=== PATIENT | male | born 1970 | race Caucasian/White ===

== ENCOUNTER → 2017-06-30 16:08 | Outpatient (CLI) | payer BC, SELFPAY ==
--- NOTE | 2017-06-30 16:20 | RAD_ITS ---
STUDY: X-RAY - CERVICAL SPINE REASON FOR EXAM: Male, 47 years old. Degenerative disc disease TECHNIQUE: 6 view(s) of the cervical spine were obtained. COMPARISON: None FINDINGS: Disc space narrowing and osteophytes at the C5-6 level. The C6-7 level has been fused. Alignment is normal. Prevertebral soft tissues are unremarkable. Foramina are patent. Dens is normal. No fractures or erosive lesions are seen. RAD/Cerv Spine 4 or 5 Views IMPRESSION: No acute osseous abnormality is evident. Degenerative disc disease at the C5-6 level. Electronically Signed: Js Pierre MD at 0:00 EDT Tel , Service support ,
[2017-06-30 18:01] LABS: Absolute Lymphocyte Count 1.72 X10^3/ul (0.83-4.51); Absolute Neutrophil Count 2.8 X10^3/uL (2.0-7.7); Basophil# 0.01 X10^3/uL; Basophil% 0.2 % (0-1); Eosinophil# 0.12 X10^3/uL; Eosinophils% 2.3 % (0-5); Hematocrit 44.8 % (40-54); Hemoglobin 15.9 g/dl (13.0-16.5); Lymphocyte # 1.72 X10^3/ul (4.0); Lymphocyte % 33.5 % (19-41); Mean Corp Hgb Conc 35.5 g/gl (32-36); Mean Corpuscular Hgb 33.2 pg (27.0-32.0); Mean Corpuscular Volume 93.5 fL (80-94); Mean Platelet Vol. 9.8 fl (6.2-12.0); Monocyte# 0.48 X10^3/uL; Monocyte% 9.4 % (0-10); Neutrophil # 2.79 X10^3/uL (2.7-7.7); Neutrophil % 54.4 % (47-70); Platelet Count 294 K/mm3 (150-450); RBC Distribution Width CV 12.3 % (11.6-14.6); RBC Distribution Width SD 41.5 fl (35.1-43.9); Red Blood Count 4.79 M/mm3 (4.6-6.2); White Blood Count 5.1 K/mm3 (4.4-11.0)
[2017-06-30 18:04] LABS: POSITIVE COUNT NO; POSITIVE DIFFERENTIAL NO; POSITIVE MORPHOLOGY NO
[2017-06-30 18:19] LABS: ALB/GLOB Ratio 1.4 RATIO (0.9-2.4); AST(SGOT) 30 U/L (15-37); Alanine Aminotransfer ALT/SGPT 64 U/L (16-61); Albumin, Serum 4.4 g/dL (3.2-5.0); Alkaline Phosphatase 102 U/L (45-117); Anion Gap 7 (5-15); BUN 14 mg/dL (7-18); BUN/Creat Ratio 12.5 RATIO (10-20); Calcium,Total 8.6 mg/dL (8.5-10.1); Chloride 104 mmol/L (98-107); Creatinine, Serum 1.12 mg/dL (0.70-1.30); EST Glomerular Filtration Rate 75 mL/min (>60); Est Glom Filt Rate - Afr Amer 91 mL/min (>60); Globulin 3.2 g/dL (2.2-4.2); Glucose 86 mg/dL (74-106); Potassium 3.9 mmol/L (3.5-5.1); Protein, Total 7.6 g/dL (6.4-8.2); Sodium Level 142 mmol/L (136-145)
== END ==
PROVIDERS: Family Provider Family Medicine; PCP Family Medicine; Visit Provider Family Medicine
DX: Z00.00 Encounter for general adult medical examination without abnormal findings (principal); M50.30 Other cervical disc degeneration, unspecified cervical region; R10.9 Unspecified abdominal pain
CPT/HCPCS: 36415; 72050; 80053; 85025

== ENCOUNTER 2017-07-06 16:19 | Outpatient (RCR) | payer BC, SELFPAY ==
--- NOTE | 2017-07-27 07:42 | HP.PTEVAL ---
Patient's Visit Information KATIA EASON is a 47 year old M referred to Physical Therapy by Omer Paul with a diagnosis of Cervical DDD. Date of Evaluation: 07/06/17 Physical Therapist: Clarence Watters - Visit Plan Frequency: 1x/Week Duration: 4 Weeks Plan: Pt. had a high copay and reports that he would be unable to make many more PT appointments. Pt. does have home traction unit. edcuated pt. on how to use. I also gave pt. SNAG exercises with towel to increase ROM and proper joint mechanics with cervical ext. Pt.to trial on own, Pt. consents. - Subjective Subjective: Pt. is here today for his initial evaluation with diagnosis of cevical DDD. Pt. reports having these symptoms for many years. He has treated in past with decent success, but has not trialed exercises recently. He reports no mechanism of injury, but just occured gradually. He denies N/T in either UE, no dry plasterer weakness, and no dizziness. Increased pain: sleeping, lifting objects over head, cervical rotation. Decreased pain: nothing really. Pt. had trialed traction in past, has self unit but has not used recently. He had an xray showing DDD and C5/C6. Pt. does have trouble sleeping and his pain does wake him up frequently. Pt. is hopeful to reduce symptoms in order to sleep better and get back to all work and recreational activities without limitations. - Pain cervical spine Pain Intensity (Out of 10): 2 Pain Intensity Range: 0, 6 - Objective POSTURE: PT. has FH and increased thoracic kyphosis, but is able to correct. Increased symptoms with cervical retraction. Pt. has equal shoulder heights. PALPATION: Pt. has increased tenderness at C4-C7 spinous processes. Pt. has no pain at bilat UT or levator scapulea. Pt. has no pain at sub occipitals. NEUROLOGICAL: PT. has normal sensation throughout bilateral UEs to light and sharp touch. Pt. has 2+ biceps and triceps DTR bilaterally. Pt. has no signs of limp tension. ROM: CERVICAL SPINE: flexion- nil loss NE, ext min/mod loss increase NW, SB min loss bilat increase NW, rotation min loss bilat mild increase NW at end range. Pt. has normal bilateral shoulder ROM without increase in symptoms. MMT: Pt. has 5/5 strength throughout bilateral UEs, dry plasterer strength normal R to left with 20# difference from R to L, as expected. R hand dominant. - Special Tests C/S Radiculapathy - Left Spurlings: Negative C/S Radiculapathy - Right Spurlings: Negative C/S Radiculapathy - Left Cervical distraction: Negative C/S Radiculapathy - Right Cervical distraction: Negative C/S Radiculapathy - Left Relief test: Positive C/S Radiculapathy - Right Relief test: Positive Sharp Ortiz: Negative Vertebral Artery Test: Negative Alar Ligament Test: Negative Cervical Sitting: Protrusion - Mechanical Response: No effect Cervical Sitting: Protrusion - Symptoms During Testing: No effect Cervical Sitting: Protrusion - Symptoms After Testing: No effect Cervical Sitting: Retraction - Mechanical Response: No effect Cervical Sitting: Retraction - Symptoms During Testing: Increases Cervical Sitting: Retraction - Symptoms After Testing: No worse Cervical Sitting: Retraction-Extension - Mechanical Response: No effect Cerv Sitting: Retraction-Extension - Symptoms During Testing: Increases Cerv Sitting: Retraction-Extension - Symptoms After Testing: No worse Cervical Sitting: Sidebend Right - Mechanical Response: No effect Cervical Sitting: Sidebend Right - Symptoms During Testing: No effect Cervical Sitting: Sidebend Right - Symptoms After Testing: No effect Cervical Sitting: Sidebend Left - Mechanical Response: No effect Cervical Sitting: Sidebend Left - Symptoms During Testing: No effect Cervical Sitting: Sidebend Left - Symptoms After Testing: No effect Cervical Sitting: Rotation Right - Mechanical Response: No effect Cervical Sitting: Rotation Right - Symptoms During Testing: Increases Cervical Sitting: Rotation Right - Symptoms After Testing: No worse Cervical Sitting: Rotation Left - Mechanical Response: No effect Cervical Sitting: Rotation Left - Symptoms During Testing: Increases Cervical Sitting: Rotation Left - Symptoms After Testing: No worse Cervical Sitting: Flexion - Mechanical Response: No effect Cervical Sitting: Flexion - Symptoms During Testing: No effect Cervical Sitting: Flexion - Symptoms After Testing: No effect - Goals Goal 1:: Pt. to be I with HEP. Goal Time Frame: 4-6 Weeks Goal 2:: Pt. to have increased cervical ROM by 25% in all directions without increase in symptoms. Goal Time Frame: 4-6 Weeks Goal 3:: Pt. to have 0-2/10 pain while sleeping allowing for increased quality of life. Goal Time Frame: 4-6 Weeks Goal 4:: Pt. to complete all work and ADLs with 0-2/10 pain allowing for increased tolerance to all functional mobility. Goal Time Frame: 4-6 Weeks Goal 5:: Pt. to demonstrate improved cervical and thoracic posture throughout therapy demonstrating improved postural endurance and awareness. Goal Time Frame: 4-6 Weeks - Rehabilitation Potential Physical Therapy Diagnosis: Pt. has signs and symptoms consistent with cervical DDD without radiculopathy. Pt. has no radiating symptoms or myotomal weakness. Pt. does have decreased ROM, especially into ext and rotation. He has a traction unit at home that he has not used in a while. He would benefit from PT to increase ROM and decrease symptoms allowing increased tolerance to all functional mobility and sleeping positions. Rehabilitation Potential: Good - Anticipated Interventions Patient/Client Instruction: Educate patient on: Condition, Plan of Care, Risk Factors, Benefits of Fitness Program For the Purpose of:: To foster healthy habits, To improve decision making, To facilitate caregiver knowledge, To improve self management, To prevent re-injury, To improve ability to perform tasks related to life management, To improve tolerance to ADL's Therapeutic Exercise to Include: Strength training, Power training, Postural training, Flexibilty training, Passive ROM, Active ROM, Otf Exercises, Scapular Strength/Stabilization For the Purpose of:: To decrease pain, To decrease swelling/inflammation, To increase ROM, To improve nutrient delivery to tissue, To improve muscle performance and motor function, To improve ability to perform ADL's, To increase tolerance to activity/condition/position Manual Therapy Techniques to Include: Trigger point massage, Mobilization, Passive ROM, Functional dry needling, Soft tissue mobilization For the Purpose of:: To decrease pain, To increase ROM, To improve nutrient delivery to tissue, To increase oxygenation perfusion, To improve muscle performance and motor function, To improve ability to perform ADL's IF ES: Yes Cryotherapy (ice pack, ice massage): Yes Ultrasound (thermal/non thermal): Yes Intermittent cervical traction: Yes For the Purpose of:: To decrease pain, To decrease swelling/inflammation, To increase ROM Thank you for the opportunity to evaluate your patient. For Medicare and Medicare HMO plans, please review the plan of care and approve it. It will need to be FAXED BACK to us at [phone] for Medicare purposes. Please let me know if there are questions or concerns regarding this plan of care. Physician Signature: Date:
--- NOTE | 2017-12-22 12:10 | HP.PTDCNRP_ITS ---
HP - Discharge Summary (1) - Patient Information KATIA EASON was seen in my office for initial evaluation on 07/06/17. The following Plan of Care was established for this patient: Initial Frequency: 1x/Week Initial Duration: 4 Weeks - Anticipated Interventions Patient/Client Instruction: Educate patient on: Condition, Plan of Care, Risk Factors, Benefits of Fitness Program For the Purpose of:: To foster healthy habits, To improve decision making, To facilitate caregiver knowledge, To improve self management, To prevent re- injury, To improve ability to perform tasks related to life management, To improve tolerance to ADL's Therapeutic Exercise to Include: Strength training, Power training, Postural training, Flexibilty training, Passive ROM, Active ROM, Otf Exercises, Scapular Strength/Stabilization For the Purpose of:: To decrease pain, To decrease swelling/inflammation, To increase ROM, To improve nutrient delivery to tissue, To improve muscle p erformance and motor function, To improve ability to perform ADL's, To increase tolerance to activity/condition/position Manual Therapy Techniques to Include: Trigger point massage, Mobilization, Passive ROM, Functional dry needling, Soft tissue mobilization For the Purpose of:: To decrease pain, To increase ROM, To improve nutrient delivery to tissue, To increase oxygenation perfusion, To improve muscle performance and motor function, To improve ability to perform ADL's IF ES: Yes Cryotherapy (ice pack, ice massage): Yes Ultrasound (thermal/non thermal): Yes Intermittent cervical traction: Yes For the Purpose of:: To decrease pain, To decrease swelling/inflammation, To increase ROM This patient was last seen in our office 07/06/17. Pertinent comments regarding their Physical therapy will appear below: Pt. was seen for cervical DDD. Pt. has a history and did not have any radiating symptoms. Pt. had positive results with manual traction. Pt. reported he would be unable to attend future PT visits due to high copay. Pt. does have a home traction unit and was indicated to continue to use this. Pt. consents. Pt. has not been seen in ~6 weeks and will be DC from PT at this point in time. At this point I will be discontinuing this patient from physical therapy. I would be happy to see this patient again in the future if found appropriate by the physician. Thank you! Clarence Watters
== END 2017-07-06 19:00 | disposition home or self-care (01) ==
LOC: PT 16:19
PROVIDERS: Family Provider Family Medicine; PCP Family Medicine; Visit Provider Family Medicine
DX: M50.30 Other cervical disc degeneration, unspecified cervical region (principal)
CPT/HCPCS: 97162

== ENCOUNTER 2017-12-03 05:26 | Day surgery (SDC) | payer BC, SELFPAY ==
[2017-12-03 05:45] VITALS: BP 128/83; PULSE 68; RESP 14; TEMP 36.3; O2SAT 97; BMI 25.9
[2017-12-03] MEDS: Cefazolin 2 GM in 0.9% Normal Saline 100 ML IV (07:02)
--- NOTE | 2017-12-03 07:12 | OP.PCM_ITS ---
Problem List (1) Umbilical hernia without obstruction or gangrene Status: Acute Report of Operation Date of Procedure: 12/03/17 Pre-Operative Diagnosis: k42.9 umbilical hernia without obstruction and without gangrene Post-Operative Diagnosis: same Surgery/Procedure Performed:: Local hernia repair with mesh Type of Anesthesia:: General Anesthesiologist: Prashanth Stauffer Estimated Blood Loss (mL): < 25 cc Description of Procedure: Patient was brought into the operating room. Placed in the supine position. Under excellent general endotracheal intubation the abdomen was sterilely prepped and draped. Local was injected infraumbilically. A curvilinear incision was made. Dissection was carried down to the umbilical defect. This was dissected free from the umbilicus. I then created a preperitoneal plane underneath the fascia. I fashioned a small [employer] ST hernia patch into the wound reference #[id number] lot number [id number]. Circumferentially tacked this to the surrounding fascia with #1 Nurolon's. I injected more local. The umbilicus was tacked down to the fascia with a 2-0 Vicryl. Deep dermals of 3-0 Vicryl in a running 4-0 Monocryl on the skin. Steri-Strips are applied sterile dressings were applied and the patient tolerated the procedure well. - Admit VTE Documentation VTE Present on Admission: No VTE Mechan Device Prophylaxis: SCD's VTE Pharm Prophylaxis ordered?: No Reason prophylaxis not ordered:: Treatment Not Indicated
--- NOTE | 2017-12-03 07:13 | DCINST_ITS ---
Discharge Diet: Light diet - advance as tolerated Discharge Activity: Return to Normal Activity, May Drive - when you are no longer taking narcotic pain medications., May Shower - with the bandage in place 1-2 days after surgery. Lifting Restrictions: 20 pounds for 8 weeks. Additional Activity Instructions:: Climbing stairs is fine, walking is encouraged. Sitting in bed may be uncomfortable. Sitting up using your lateral muscles (sitting up sideways) is usually more comfortable. Do not drive, work heavy equipment of sign legal documents for 24 hours. If your hernia repair was an ingunial repair, you may have scrotal swelling, an ice pack and/or athletic support can provide more comfort. Pain medications may cause nausea, you should typically eat light foods as you take your pain medications. Pain medications may also cause constipation. If you have difficulty with this, discuss with your doctor. Call your doctor if your incision/area has: Continuous Slow Oozing, Sudden Increased Bleeding, Increased Pain/ Swelling, Increased Redness, Foul Smelling Discharge Call your doctor if you observe: Fever of 101 or Higher Suture Line Care: Avoid Pulling/Pushing, Avoid Pinching/Bending Additional Dressing/Incision Instructions:: Leave the operative bandage on for 2 -3 days. When you remove the bandage, leave the steri-strips on place until your follow up appointment or they fall off. Allergies/Adverse Reactions: Allergies ibuprofen Allergy (Severe, Verified 11/26/17 13:37) throat swelling Medications to take at Discharge Oxycodone HCl/Acetaminophen [Percocet 5/325] 1 - 2 tab PO Q4H PRN PRN 5 Days # 30 tab 12/03/17 The following prescriptions were given: Oxycodone HCl/Acetaminophen [Percocet 5/325] 1 - 2 tab PO Q4H PRN PRN 5 Days # 30 tab PRN Reason: Pain Primary Care Physician: Tr Paul MD [Primary Care Provider] - Test Results: Test results from this visit will be discussed in further detail at your follow- up appointment, if applicable. Please Follow Up With: Steve Gamez MD - [phone] When: Plan to have a follow up appointment in 7 days. Call to schedule.
[2017-12-03] MEDS: Bupivacaine Mpf 0.5% 30 ML VIAL (07:42)
[2017-12-03 08:03] VITALS: BP 128/83; BP 131/91; PULSE 69; RESP 16; TEMP 36.6; O2SAT 95
[2017-12-03 08:14] VITALS: BP 124/80; BP 128/83; PULSE 65; RESP 16; O2SAT 95
[2017-12-03 08:30] VITALS: BP 115/88; BP 128/83; PULSE 60; RESP 16; TEMP 36.2; O2SAT 95
[2017-12-03 09:49] VITALS: BP 128/83; BP 130/84; PULSE 51; RESP 16; TEMP 36.2; O2SAT 97
== END 2017-12-03 09:52 | disposition home or self-care (01) ==
LOC: SDC 05:27 → AC 05:28
PROVIDERS: Family Provider Family Medicine; PCP Family Medicine; Visit Provider Surgery
PROC: (CPT 49585; principal; 2017-12-03 07:00)
DX: K42.9 Umbilical hernia without obstruction or gangrene (principal); F17.220 Nicotine dependence, chewing tobacco, uncomplicated; Z87.442 Personal history of urinary calculi
CPT/HCPCS: 49585; J7120; C1781; J2405

== ENCOUNTER → 2020-12-26 | Outpatient (CLI) | payer BC, SELFPAY | END | disposition home or self-care (01) | PROVIDERS: PCP Family Medicine; Visit Provider Physician Assistant | DX: R50.9 Fever, unspecified (principal) | CPT/HCPCS: 87635; U0005; U0003 ==

== ENCOUNTER → 2021-10-15 | Outpatient (CLI) | payer BC, SELFPAY ==
--- NOTE | 2021-10-15 16:39 | RAD_ITS ---
STUDY: XR Wrist Min 3 Views REASON FOR EXAM: Male, 51 years old. PAIN TECHNIQUE: XR Wrist Min 3 Views RIGHT COMPARISON: None FINDINGS: There are no acute findings of the visualized distal radius and ulna. There are no acute findings of the radiocarpal articulation. Normal distal radioulnar articulation. Normal carpal bones. Normal carpal articulations. There are no acute findings of the carpometacarpal articulation of the thumb. Normal second through fifth carpometacarpal articulations. There are no acute findings of the visualized metacarpal bones. The soft tissue structures are unremarkable. RAD/Wrist min 3 Views IMPRESSION: There are no acute findings of the wrist. Electronically Signed: George Nesbitt MD at 20:14 EDT ,
--- NOTE | 2021-10-15 16:40 | RAD_ITS ---
STUDY: XR Hand Min 3 Views REASON FOR EXAM: Male, 51 years old. thumb pain/ snuffbox pain TECHNIQUE: XR Hand Min 3 Views RIGHT COMPARISON: None. FINDINGS: Normal radiocarpal articulation. Normal distal radioulnar joint. Normal visualized carpal bones. Normal carpal articulations Normal carpometacarpal articulation of the thumb. Normal second through fifth carpometacarpal joints. Normal metacarpi. Normal metacarpophalangeal joint of the thumb. Normal interphalangeal joint of the thumb. Normal proximal and distal phalanges of the thumb. Normal metacarpophalangeal joints of the second through fifth fingers. Normal proximal and distal interphalangeal joints of the second through fifth fingers. Normal phalanges of the second through fifth fingers. The soft tissue structures are unremarkable. RAD/Hand Min 3 Views IMPRESSION: There are no acute findings. Electronically Signed: George Nesbitt MD at 20:10 EDT ,
== END | disposition home or self-care (01) ==
LOC: MTRAD 16:34
PROVIDERS: PCP Family Medicine; Referring Provider Nurse Practitioner Family; Visit Provider Nurse Practitioner Family
DX: G56.00 Carpal tunnel syndrome, unspecified upper limb (principal)
CPT/HCPCS: 73110; 73130

== ENCOUNTER → 2022-10-30 | Outpatient (CLI) | payer OTHER, SELFPAY ==
--- NOTE | 2022-10-30 15:58 | RAD_ITS ---
INDICATION: PAIN EXAMINATION/TECHNIQUE: X-RAY - XR Spine Lumbar Comp W/ Bending Min 6 Views COMPARISON: None. FINDINGS: Vertebral bodies are normal height. No definite fracture demonstrated. No subluxation. Mild disc space narrowing with osteophytes most pronounced at L2-3. Mild facet arthropathy at L4-5 and L5-S1. No paravertebral soft tissue mass identified. Additional lateral views obtained with flexion and extension. No subluxation with either flexion or extension. RAD/L/S Spine w Bend Min 6 Vw IMPRESSION: No evidence of fracture or subluxation. Mild degenerative changes. Electronically Signed: Lashonda Donovan MD at 0:02 EDT ,
[2022-10-30 17:35] LABS: Absolute Lymphocyte Count 1.97 X10^3/uL (0.83-4.51); Absolute Neutrophil Count 2.1 X10^3/uL (2.0-7.7); Basophil# 0.05 X10^3/uL; Eosinophil# 0.29 X10^3/uL; Eosinophils% 5.8 % (0-5); Hematocrit 44.8 % (40-54); Hemoglobin 15.8 g/dL (13.0-16.5); Lymphocyte # 1.97 X10^3/ul (0.83-4.51); Lymphocyte % 39.3 % (19-41); Mean Corp Hgb Conc 35.3 g/dL (32-36); Mean Corpuscular Hgb 33.5 pg (27.0-32.0); Mean Corpuscular Volume 95.1 fL (80-94); Mean Platelet Vol. 9.5 fl (6.2-12.0); Monocyte# 0.55 X10^3/uL; NRBC Flagged by Analyzer 0 % (0-5); Neutrophil # 2.14 X10^3/uL (2.7-7.7); Neutrophil % 42.7 % (47-70); Platelet Count 227 K/mm3 (150-450); RBC Distribution Width CV 12.3 % (11.6-14.6); RBC Distribution Width SD 43.1 fl (35.1-43.9); Red Blood Count 4.71 M/mm3 (4.6-6.2)
[2022-10-30 17:50] LABS: Erythrocyte Sedimentation Rate 3 mm/hr (0-20)
[2022-10-30 17:58] LABS: Anion Gap 6 (5-15); BUN 15 mg/dL (7-18); BUN/Creat Ratio 13.4 RATIO (10-20); Calcium,Total 9.1 mg/dL (8.5-10.1); Chloride 107 mmol/L (98-107); Cholesterol 258 mg/dL (200); Creatinine, Serum 1.12 mg/dL (0.70-1.30); EST Glomerular Filtration Rate 73 mL/min (>60); Est Glom Filt Rate - Afr Amer 89 mL/min (>60); Glucose 87 mg/dL (74-106); High Density Lipoprotein 50 mg/dL; PSA,Total - Annual Screen 0.51 ng/mL (0.00-4.00); Potassium 3.8 mmol/L (3.5-5.1); Sodium Level 140 mmol/L (136-145); Thyroid Stim Hormone (TSH) 2.57 uIU/mL (0.358-3.74); Triglycerides 263 mg/dL; Very Low Density Lipoprotein 53 mg/dL (5-40)
[2022-10-30 21:45] LABS: Vitamin B12 539 pg/mL (211-911)
[2022-11-01 11:09] LABS: Lyme Scn Total Ab w/Rflx Negative (Negative)
== END | disposition home or self-care (01) ==
LOC: MTLAB 15:53
PROVIDERS: PCP Family Medicine; Visit Provider Family Medicine
DX: M79.10 Myalgia, unspecified site (principal); Z12.5 Encounter for screening for malignant neoplasm of prostate; Z13.1 Encounter for screening for diabetes mellitus; W57.XXXA Bitten or stung by nonvenomous insect and other nonvenomous arthropods, initial encounter; Z13.220 Encounter for screening for lipoid disorders; M53.3 Sacrococcygeal disorders, not elsewhere classified
CPT/HCPCS: 36415; 72114; 80048; 80061; 82306; 82607; 84153; 84403; 84443; 85025; 85652; 86618; G0103

== ENCOUNTER → 2023-06-30 | Outpatient (CLI) | payer OTHER, SELFPAY ==
--- NOTE | 2023-06-30 09:13 | RAD_ITS ---
STUDY: X-RAY - PELVIS AND LEFT HIP REASON FOR EXAM: Male, 53 years old. Pain. TECHNIQUE: 3 views of the pelvis and left hip. COMPARISON: None. FINDINGS: There is a non-specific bowel gas pattern. Normal visualized soft tissue structures. Normal bilateral iliac wings, sacroiliac joints and visualized sacrum. Normal bilateral superior and inferior pubic rami. Normal pubic symphysis. Normal bilateral ischial tuberosities. There are mild osteoarthritic changes of the femoral heads bilaterally with small marginal osteophyte formation. There is mild osteoarthritic spur formation of the acetabular rims bilaterally. Intact left hip joint. There is no demonstrated acute fracture. RAD/HIP, UNI W/ Pelvis 2-3 Views IMPRESSION: Mild degenerative arthrosis of the hip joints bilaterally. Electronically Signed: Bishop Godwin MD at 8:31 EDT ,
--- NOTE | 2023-06-30 09:13 | RAD_ITS ---
STUDY: X-RAY - LEFT KNEE REASON FOR EXAM: Male, 53 years old. Pain. TECHNIQUE: 4 views of the left knee. COMPARISON: None. FINDINGS: Normal visualized distal femur. Normal visualized proximal tibia and fibula. Normal proximal tibiofibular articulation. There is no demonstrated fracture. Normal medial femorotibial compartment. Normal lateral femorotibial compartment. Normal patellofemoral articulation. There is a moderate volume joint effusion. The soft tissue structures are unremarkable. RAD/Knee 4 or More Views IMPRESSION: Moderate joint effusion. No demonstrated fracture. Electronically Signed: Bishop Godwin MD at 8:24 EDT ,
== END | disposition home or self-care (01) ==
PROVIDERS: PCP Family Medicine; Referring Provider Family Medicine; Visit Provider Family Medicine
DX: M25.562 Pain in left knee (principal); M25.552 Pain in left hip
CPT/HCPCS: 73502; 73564

== ENCOUNTER → 2023-07-20 | Outpatient (CLI) | payer OTHER, SELFPAY ==
--- NOTE | 2023-07-20 08:45 | MRI_ITS ---
EXAM: MR LUMBAR SPINE WITHOUT INTRAVENOUS CONTRAST CLINICAL INDICATION: LUMBAGO W/ SCIATICA TECHNIQUE: Multiplanar and multisequence MR images of the lumbar spine without intravenous contrast. COMPARISON: No relevant prior studies available. FINDINGS: VERTEBRAE: Alignment of the lumbar vertebral bodies. Normal vertebral body height. No bone marrow edema. SPINAL CORD: Normal. Normal position and signal intensity of the conus medullaris. SACRUM/COCCYX: 11 mm sacral cysts noted at the S2 level. SOFT TISSUES: Normal. DISCS/SPINAL CANAL/NEURAL FORAMINA: L1-L2: Mild disc space narrowing and desiccation. Mild broad-based disc osteophyte complex causes mild compression of the thecal sac. Intact neural foramina. L2-L3: Mild to moderate disc space narrowing and desiccation. Circumferential disc osteophyte complex causes mild spinal stenosis and moderate left and mild right neural foraminal narrowing. L3-L4: Mild disc space narrowing and desiccation. Broad-based disc protrusion, mild ligamentous hypertrophy and facet arthropathy results in mild to moderate spinal stenosis and mild right and moderate left neural foraminal narrowing. L4-L5: Mild disc space narrowing noted posteriorly without desiccation. Mild disc bulging, ligamentous hypertrophy and facet arthropathy result in mild compression of the thecal sac and moderate bilateral neural foraminal narrowing. L5-S1: Normal. Normal disc height and morphology. Normal spinal canal and lateral recesses. Normal neuroforamina. MRI/Spine Lumbar (Routine) IMPRESSION: 1. Mild to moderate L3-4 and mild L2-3 and L4-5 spinal stenosis. 2. Multilevel neural foraminal narrowing as described. Electronically Signed: Alejandro Winters MD at 16:57 EDT ,
== END | disposition home or self-care (01) ==
PROVIDERS: PCP Family Medicine; Referring Provider Family Medicine; Visit Provider Family Medicine
DX: M54.42 Lumbago with sciatica, left side (principal)
CPT/HCPCS: 72148

== ENCOUNTER → 2023-10-13 | Outpatient (CLI) | payer OTHER, SELFPAY ==
--- NOTE | 2023-10-13 10:24 | MRI_ITS ---
STUDY: MRI LEFT KNEE REASON FOR EXAM: Male, 53 years old. Acute pain in left knee. TECHNIQUE: Standardized fat and water weighted pulse sequences were obtained in all 3 orthogonal planes. COMPARISON: Left knee radiographs dated 06/30/2023. FINDINGS: There is a displaced meniscal flap tear of the free edge of the posterior horn of the medial meniscus, flipped into the posterior intercondylar notch region (sagittal T2 series 4 images 7-11; axial T2 series 2 images 16-17). Normal hyaline cartilage of the medial femorotibial compartment. Normal medial femoral condyle and tibial plateau. There is a mild grade I MCL sprain with periligamentous edema (coronal T2 series 6 images 17-19). Normal distal semimembranosus, gracilis and semitendinosus tendons. Normal lateral meniscus. Normal hyaline cartilage of the lateral femorotibial compartment. Normal lateral femoral condyle and tibial plateau. Normal proximal tibiofibular articulation. Normal lateral collateral (fibular) ligament. Normal popliteus tendon. Normal biceps femoris tendon. There is an interstitial sprain of the ACL without focal tear or laxity (sagittal T2 series 4 images 13-14). There is a tear through the midsubstance of the PCL (sagittal T2 series 4 images 11-12). There is slight lateral patellar subluxation. Normal hyaline cartilage of the patellofemoral compartment. Normal medial and lateral patellar retinaculum. Normal quadriceps tendon. Normal patellar tendon. Normal Hoffa''s fat pad. There is a small joint effusion. There is a small popliteal cyst. There is mild subcutaneous soft tissue edema along the anteromedial aspect of the knee. The otherwise visualized osseous structures are unremarkable. MRI/Lower Ext Joint Only (Routine) IMPRESSION: Displaced meniscal flap tear of the free edge of the posterior horn of the medial meniscus, flipped into the posterior intercondylar notch region. Mild grade I MCL sprain. Interstitial sprain of the ACL without focal tear or laxity. Tear through the midsubstance of the PCL. Slight lateral patellar subluxation. Small joint effusion and small popliteal cyst. Mild subcutaneous soft tissue edema along the anteromedial aspect of the knee. Electronically Signed: Bishop Godwin MD at 11:37 EDT ,
== END | disposition home or self-care (01) ==
LOC: MRI 10:08
PROVIDERS: PCP Family Medicine; Referring Provider Family Medicine; Visit Provider Family Medicine
DX: M25.562 Pain in left knee (principal)
CPT/HCPCS: 73721

== ENCOUNTER 2023-12-02 05:39 | Day surgery (SDC) | payer OTHER, SELFPAY ==
[2023-12-02] VITALS (9 sets, daily range): BP systolic 138–155; BP diastolic 89–101; PULSE 63–82; RESP 16; TEMP 36.3–36.7; O2SAT 93–97; BMI 28.0
[2023-12-02] MEDS: Lactated Ringers 1,000 ML 15 ML IV (06:25)
--- NOTE | 2023-12-02 06:41 | PRE.ANES_ITS ---
ASA Classification* ASA Classification ASA Classification: 2 Assessment & Plan Anesthesia* Anesthesia Assessment Anesthesia Assessment: Discussed sedation and/or anesthesia options, risks, benefits, and alternatives with patient/parents/legal guardian/POA. Questions invited. The patient/parents/legal guardian/POA seems to understand and agrees to proceed with anesthesia plan. Reviewed the physical assessment, medical history, allergy history and patient home medications list prior to surgery/procedure/anesthetic and documented any changes. Performed airway and anesthesia risk assessments. Anesthesia Type Anesthesia Type: General Anesthesia Focused Assessment* Temperature: 98.1 F Pulse Rate: 63 Blood Pressure: 155/98 Respiratory Rate: 16 Pulse Ox: 96 Airway Assessment Mouth opens: >3 cm Mallampati Score: II Focused Labs Anesthesia Preop lab: CBC WBC 5.0 K/mm3 (4.4-11.0) 10/30/22 15:54 RBC 4.71 M/mm3 (4.6-6.2) 10/30/22 15:54 Hgb 15.8 g/dL (13.0-16.5) 10/30/22 15:54 Hct 44.8 % (40-54) 10/30/22 15:54 Plt Count 227 K/mm3 (150-450) 10/30/22 15:54 CHEMISTRY Potassium 3.8 mmol/L (3.5-5.1) 10/30/22 15:54 Sodium 140 mmol/L (136-145) 10/30/22 15:54 BUN 15 mg/dL (7-18) 10/30/22 15:54 Creatinine 1.12 mg/dL (0.70-1.30) 10/30/22 15:54 Glucose 87 mg/dL (74-106) 10/30/22 15:54 TSH 2.57 uIU/mL (0.358-3.74) 10/30/22 15:54 COAG Pre-Assessment Diagnosis/Proposed Procedure Planned Operative Procedure(s): (L) Left knee arthroscopy, medial meniscus partial meniscectomy, possible repair Anesthesia History 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 When Was Last Pacemaker Check QUESTION #4 FULL TEXT: You/Your Family Experience fever (hyperthermia) with Anesthesia Last Oral Intake Last Oral intake: Last Oral Intake NPO since 00:00 12/02/23 06:20 Meds taken in AM with sips of No 12/02/23 06:20 water? 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 Female No 11/19/23 08:33 HX of Motion Sickness No 11/19/23 08:33 HX of N/V After Surgery No 11/19/23 08:33 Non-Smoker No 11/19/23 08:33 Duration of Surgery greater Yes 11/19/23 08:33 than 60 minutes Number of Risk Factors 1 11/19/23 08:33 PONV Score Low Risk 11/19/23 08:33 Height & Weight Height & Weight: Anesthesia: Height & Weight Height 6 ft 2 in 12/02/23 06:20 Weight: 99 kg 12/02/23 06:20 Body Mass Index (BMI) 28.0 12/02/23 06:20 Respiratory Assessment Respiratory Assessment - cracking unit operator: Respiratory Tract Infection Hx - cracking unit operator Hx Respiratory Tract Infection No 11/19/23 08:33 STOP Sleep Apnea STOP Sleep Apnea - cracking unit operator: STOP Sleep Apnea - cracking unit operator Hx Hypertension No 11/19/23 08:33 Hx Sleep Apnea No 11/19/23 08:33 CPAP BIPAP Do you snore loudly (louder Yes 11/19/23 08:33 than talking or can be heard Do you often feel tired/ No 11/19/23 08:33 fatigued/ sleepy during daytime? Has anyone observed you stop Yes 11/19/23 08:33 breathing during sleep? STOP Results Positive 11/19/23 08:33 QUESTION #5 FULL TEXT : Do you snore loudly (louder than talking or can be heard through closed doors)? 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 Specify any problems Hx of Preganancy in last 3 N/A 11/19/23 08:33 Months Nurse Filling Out Transfusion VCHRISTIN 11/19/23 08:33 & Questions: Date: 11/19/23 11/19/23 08:33 Time: 08:35 11/19/23 08:33 Patient unable to answer at this time (ie. 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: /Reproductive Hx- cracking unit operator Hx Now Gestational Age (in weeks): EDC: Hx Hx Para Hx Section SAB Active Medications Active Medications: Current Medications Generic Name Dose Route Start Last Admin Trade Name Freq PRN Reason Stop Dose Admin Cefazolin Sodium 2 gm/ Sodium 110 mls @ 150 mls/hr 12/02/23 07:30 Chloride IV 12/02/23 08:13 PREOP ONE Lactated Ringer's 1,000 mls @ 15 mls/hr 12/02/23 06:30 12/02/23 06:25 IV 15 mls/hr .Q48H RUKHSANA Administration PFSH Medical History Wears glasses Alcohol use History of steroid therapy Arthritis Back pain Injury of head and neck History of diverticulitis Chewing tobacco dependence History of edema 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 Tear of medial meniscus of left knee Encounter for screening for COVID-19 Chronic back pain Renal calculi Diverticulosis Home Medications ?Medication ?Instructions ?Recorded ?Last Taken ?Type B-complex with vitamin C 1 tab PO DAILY 10/23/23 Unknown History cholecalciferol (vitamin D3) 62.5 62.5 mcg PO DAILY 10/23/23 Unknown History mcg (2,500 unit) capsule multivitamin 1 tab PO DAILY 10/23/23 Unknown History turmeric 400 mg capsule 400 mg PO DAILY 11/19/23 Unknown History Allergy/AdvReac Type Severity Reaction Status Date / Time ibuprofen Allergy Severe throat Verified 12/02/23 06:06 swelling NSAIDS (Non-Steroidal Allergy Swelling Verified 12/02/23 06:06 Anti-Inflamma Family History Mother Cancer brain cancer Brother Cancer brain Surgical History History of umbilical hernia repair (~11/2017) History of arthroscopic knee surgery History of wisdom tooth extraction history of lymph node removal History of neck surgery Social History Smoking Status: Current every day smoker tobacco type: smokeless tobacco Review of Systems (Anesthesia) ROS Narrative System reviewed and no additional complaints, except as documented.
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
[2023-12-02] MEDS: Cefazolin 2 GM in 0.9% Normal Saline (100mL Bag) 100 ML IV (07:37)
[2023-12-02] MEDS: Epinephrine (1 mg/ml) 1 MG/ML VIAL (08:00)
[2023-12-02] MEDS: Bupivacaine 0.25% 30 ML Vial (08:46)
--- NOTE | 2023-12-02 08:55 | PCM.OPRPT ---
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 Placed supine on the table. General anesthesia induced. 2 g IV Ancef ministered prior to the start of procedure. All bony prominences padded. Left lower extremity tourniquet applied to the thigh. SCD on the nonoperative leg. Stress positioner to the patient's left side. Lower extremity prepped and draped in the usual sterile fashion with chlorhexidine-based prep solution allowing over 3 minutes drying time prior to draping. Preoperative timeout performed to confirm the site patient and the surgery. EUA revealed slight posterior drawer grade 1 possibly grade 2 laxity. Began by elevating the limb inflated the tourniquet to 250 mmHg. Use standard anterolateral anteromedial arthroscopy portals. Did a full diagnostic arthroscopy. Grade 1 changes at the undersurface of the patella grade 1-2 changes of the trochlea. Debrided slightly the patellofemoral compartment any sort of frayed cartilage to the same in the medial and lateral compartments. ACL appeared frayed but intact. Lateral compartment grade 1 changes both sides slight fraying of the meniscus gently debrided scar tissue and did lysis of adhesions as well from the prepatellar area on both sides near the portals. I turned attention to medial aspect of the knee. I used the probe to and flipped the meniscus tear that was below the joint surface. I gently debrided this using shaving instrument. There was an aspect of a radial tear at the mid aspect of the medial meniscus as well as a component of a vertically oriented tear at the red red zone peripheral aspect of the anterior one third of the medial meniscus, roots intact. Knee was quite tight mild arthritis grade 1-3 changes on the medial compartment primarily of the femoral side. Due to the radial nature as well as red red zone tear medial meniscus elected to perform repair. I trephinated the MCL as well as using a piecrust technique at the proximal origin of the MCL to help with the opening of the compartment, but the knee was quite tight this was still difficult to fully open. I used the meniscus rasp on the peripheral aspect of the tear. Made 2 accessory AL portals. I used 2 vertically oriented vertical mattress sutures at the peripheral aspect of the tear. 1 of these was a Arthrex fiber stitch all inside and then the other was 2?0 braided suture inside out using the zone specific cannulas. Tied this using direct visualization. And then also performed 2 [id number] stitches at the radial aspect of the tear cut the suture short these were Arthrex all inside fiber stitch sutures. Tear was solidly fixed with no areas of flipped fragment below the joint surface. Final pictures taken and saved throughout the case on the system. I did the Gillquist view no obvious root tear medial meniscus. Tourniquet let down hemostasis achieved thoroughly irrigation. Portal sites closed with 3-0 Monocryl sutures. Skin cleaned with wet dry dressing 10 cc of 0.25%bupivacaine instilled in around the portal sites. Adaptic 4 x 4 gauze ABD and Johnathon wrap with a hinged knee brace locked in full extension was then placed. Patient woken up from general acetic transfer off the operating table and taken postanesthetic care unit in stable vision. Sponge needle instrument counts were correct. CPT 37799, 85217? Complications none Admit VTE Documentation VTE Present on Admission: No VTE Mechan Device Prophylaxis: SCD's VTE Pharm Prophylaxis ordered?: Yes Procedures Musculoskeletal [id number]-29xxx: Other Procedure See Report
--- NOTE | 2023-12-02 09:18 | EX.PCM.DISCH ---
Discharge Instructions Diet Discharge Diet: No restrictions Activity Discharge Activity: Use Crutches Weight Bearing Status: Weight bearing as tolerated Lifting Restrictions: with brace with leg straight Keep extremity elevated above heart level: Operative Extremity Dressing / Incision Call your doctor if your incision/area has: Continuous Slow Oozing, Sudden Increased Bleeding, Increased Pain/ Swelling, Increased Redness, Foul Smelling Discharge and Swelling at the incision site Call your doctor if you observe: Fever of 101 or Higher, Coldness, Increased Pain and Numbness or Tingling Remove Dressing in: leave in place till F/U Cleanse incision/area with: Do not get Incision Wet Follow Up Care Please Follow Up With: Tomas Buenrostro MD When: 2 days Test Results: Test results from this visit will be discussed in further detail at your follow-up appointment, if applicable. Discharge Plan Admission Attending Provider: Tomas Buenrostro Primary Care Provider: Omer Paul Instructions Print Language: Citizen Of [place] Discharge Orders/Prescriptions Prescriptions: New Xarelto 10 mg tablet 10 mg PO DAILY MDD 1 14 Days Qty: 14 0RF oxycodone-acetaminophen [Endocet] 5-325 mg tablet 1 tab PO Q4H MDD 6 PRN (Reason: pain) 3 Days Qty: 14 0RF No Action cholecalciferol (vitamin D3) 62.5 mcg (2,500 unit) capsule 62.5 mcg PO DAILY multivitamin Tablet 1 tab PO DAILY B-complex with vitamin C Tablet 1 tab PO DAILY turmeric 400 mg capsule 400 mg PO DAILY Referrals / Follow Up: Omer Paul MD [Primary Care Provider] - Disposition Disposition (needs filled in before D/C Order can be placed): Home, Self Care
[2023-12-02] MEDS: HYDROcodone Bitartrate/Apap 5/325 Tablet PO (09:33)
--- NOTE | 2023-12-02 13:43 | PCM.POST.ANE ---
Anesthesia: Postop Eval I Current Vital Signs Temperature: 97.4 F Pulse Rate: 82 Blood Pressure: 138/99 Respiratory Rate: 16 Pulse Ox: 93 Assessment Airway patent: Yes Spontaneous unlabored respirations: Yes nausea: No Vomiting: No Anesthesia Complication: No Fluid Hydration Crystalloid volume administer (ml): 1,000 Total IV fluid infused: 1,000 Progress Note Anesthesia document: Postop Eval 1 completed: Yes
== END 2023-12-02 10:10 | disposition home or self-care (01) ==
LOC: SDC 05:45 → AC 05:46
PROVIDERS: PCP Family Medicine; Referring Provider Orthopaedic Surgery Sports Medicine; Visit Provider Orthopaedic Surgery Sports Medicine
PROC: (CPT 29870; principal; 2023-12-02 07:10)
DX: S83.242A Other tear of medial meniscus, current injury, left knee, initial encounter (principal); S83.522A Sprain of posterior cruciate ligament of left knee, initial encounter; X58.XXXA Exposure to other specified factors, initial encounter; M17.12 Unilateral primary osteoarthritis, left knee; F17.220 Nicotine dependence, chewing tobacco, uncomplicated
CPT/HCPCS: 29882; 29884; 01400; J7120; J2405

== ENCOUNTER 2024-03-14 09:00 | Outpatient (RCR) | payer OTHER, SELFPAY ==
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
--- NOTE | 2024-01-21 10:33 | HP.PTREVAL ---
Re-Evaluation Intro: Dr. Tomas Buenrostro MD, It has been my pleasure to treat KATIA EASON over the last 13 visits for L medial meniscal repair 12/02/23. Please see the progress note below for an update on the physical therapy plan of care! Subjective Subjective: I am still having a lot of trouble sleeping at this time. I go from the bed to the chair Objective Objective/Function: L knee pain ranges from 4-6/10 L knee ROM: 0-10-105 degrees L knee MMT: flex= 18, ext= 19 #F Pt is still lacking functional strength and ROM Plan Plan Plan: 01/21/24- Continue to focus on L knee strengthening and ROM Balance/Gait/Functional tests Balance/Special Test Scores Lower Extremity Functional Score: 20 Goals Goals Goal 1:: Pt will be I with HEP. Goal Time Frame: 4-6 Weeks Goal Progress: Progressing Goal 2:: Pt will be partial WBing with one crutch to aid with ambulation. Goal Time Frame: 4-6 Weeks Goal Progress: Goal Met Goal 3:: Pt will increase L knee strength to within 90% of R knee to aid with completing iADLs and ADLs. Goal Time Frame: 4-6 Weeks Goal Progress: Progressing Goal 4:: Pt will increase L knee ROM to within 90% of R knee to aid with negotiating stairs. Goal Time Frame: 4-6 Weeks Goal Progress: Progressing Goal 5:: Pt will decrease pain by 50% to aid with sleep. Goal Time Frame: 4-6 Weeks Goal Progress: Progressing Anticipated Interventions Anticipated Interventions Patient/Client Instruction: Educate patient on: Plan of Care Therapeutic Exercise to Include: Strength training, Balance training, Body mechanics, Flexibilty training and Dynamic Lumbar Stabilization For the Purpose of:: To decrease pain, To decrease swelling/inflammation, To increase ROM, To improve muscle performance and motor function, To improve ability to perform ADL's and To improve ability of physical actions for home/community/work/leisure Re-Evaluation Ending Re-evaluation ending: Please do not hesitate to contact me at [phone] by phone or if you have questions or concerns regarding this new plan of care! Sincerely, George Smith, PT, ATC
--- NOTE | 2024-03-14 09:22 | HP.PTDCSUM ---
Discharge Summary D/C summary: It has been my pleasure to treat KATIA EASON referred by Dr. Tomas Buenrostro MD, with the diagnosis of L medial meniscal repair 12/02/23 for a total of 30 visit(s). Discharge Date: Please see the following information for a summary of their discharge status. Subjective Subjective: I am ready to be done Pain L knee: Pain Intensity (Out of 10): 1 Overall Improvement % Improvement: 60 Objective Objective/Function: L knee pain is 1-2/10 L knee MMT: flex= 29, ext= 42 #F L knee ROM: 0-4-120 degrees Pt is I with HEP Goals Goal 1:: Pt will be I with HEP. Goal Progress: Goal Met Goal 2:: Pt will be partial WBing with one crutch to aid with ambulation. Goal Progress: Goal Met Goal 3:: Pt will increase L knee strength to within 90% of R knee to aid with completing iADLs and ADLs. Goal Progress: Progressing Goal 4:: Pt will increase L knee ROM to within 90% of R knee to aid with negotiating stairs. Goal Progress: Goal Met Goal 5:: Pt will decrease pain by 50% to aid with sleep. Goal Progress: Goal Met Goal 6:: Pt will negotiate 10 stairs without limitation to aid with return to work Goal Progress: New goal Plan Plan: Discharge to I gym routine D/C Information d/c sentence: If there are questions or concerns regarding this patient's physical therapy, please feel free to call me at [phone]. Thank you for the referral of this patient. Sincerely, George Smith, PT, ATC Balance/Gait/Functional tests Balance/Special Test Scores Lower Extremity Functional Score: 39 Improvement % Improvement: 60
== END 2024-03-14 19:00 | disposition home or self-care (01) ==
LOC: PT 09:00
PROVIDERS: PCP Family Medicine; Referring Provider Orthopaedic Surgery Sports Medicine; Visit Provider Orthopaedic Surgery Sports Medicine
DX: S83.242D Other tear of medial meniscus, current injury, left knee, subsequent encounter (principal)
CPT/HCPCS: 97110; 97161; 97530

== ENCOUNTER → 2024-09-26 | Outpatient (CLI) | payer OTHER, SELFPAY ==
[2024-09-26 12:36] LABS: Hematocrit 43.2 % (40-54); Hemoglobin 15.2 g/dL (13.0-16.5); Immature Granulocytes Count 0.020 X10^3/uL (0.0-0.0); Mean Corp Hgb Conc 35.2 g/dL (32-36); Mean Corpuscular Volume 96.2 fL (80-94); Mean Platelet Vol. 10.1 fl (6.2-12.0); NRBC Flagged by Analyzer 0 % (0-5); Platelet Count 227 K/mm3 (150-450); RBC Distribution Width CV 12.3 % (11.6-14.6); RBC Distribution Width SD 43.6 fl (35.1-43.9); Red Blood Count 4.49 M/mm3 (4.6-6.2); White Blood Count 6.3 K/mm3 (4.4-11.0)
[2024-09-26 13:16] LABS: Anion Gap 12 (5-15); BUN 16 mg/dL (4-19); BUN/Creat Ratio 14.8 RATIO (10-20); Calcium,Total 9.4 mg/dL (7.6-11.0); Carbon Dioxide 25.1 mmol/L (21.0-32.0); Chloride 103 mmol/L (98-108); Cholesterol 232 mg/dL (<=200); Glucose 93 mg/dL (70-99); Low Density Lipoprotein Calc. 144 mg/dL; Potassium 4.3 mmol/L (3.3-5.1); Triglycerides 111 mg/dL; Very Low Density Lipoprotein 22 mg/dL (5-40); cholesterol:hdl ratio screen 3.53
[2024-09-26 13:17] LABS: PSA,Total - Annual Screen 0.67 ng/mL (0.02-4.00); Vitamin B12 675 pg/mL (180-914); Vitamin D,25 Hydroxy 48.1 ng/mL (30-100)
== END | disposition home or self-care (01) ==
LOC: MFPLAB 08:36
PROVIDERS: PCP Family Medicine; Referring Provider Family Medicine; Visit Provider Family Medicine
DX: M79.10 Myalgia, unspecified site (principal); Z13.220 Encounter for screening for lipoid disorders; Z12.5 Encounter for screening for malignant neoplasm of prostate; Z13.1 Encounter for screening for diabetes mellitus
CPT/HCPCS: 36415; 80048; 80061; 82306; 82607; 84153; 84403; 84443; 85025; 85652; G0103

== ENCOUNTER 2024-10-14 07:10 | Day surgery (SDC) | payer OTHER, SELFPAY ==
[2024-10-14] VITALS (9 sets, daily range): BP systolic 93–131; BP diastolic 56–96; PULSE 50–86; RESP 16–18; TEMP 36.2–36.6; O2SAT 94–98; BMI 28.3
--- OUTSIDE RECORDS SUMMARY | 2024-10-14 07:21 | XMS RPT_ITS | CCD ---
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 Tello Primary Care Provider Beverly OSMAN, Dr. Tello Attending Provider Beverly OSMAN, Dr. Tello Referring Provider [phone] Tomas Buenrostro Attending Unavailable Tomas Buenrostro Consulting Unavailable Tomas Buenrostro Referring Unavailable Ranney, Christopher Primary Care Unavailable Tomas Buenrostro Attending Unavailable Beverly, Christopher Primary Care Unavailable Beverly, Christyan Referring Unavailable Tomas Buenrostro Attending Unavailable Beverly, Christopher Primary Care Unavailable Beverly, Christyan Referring Unavailable Tomas Buenrostro Referring Unavailable Tomas Buenrostro Attending Unavailable Jonhney, Christopher Primary Care Unavailable Ranney, Christopher Referring Unavailable Ranney, Christopher Primary Care Unavailable Armando Paul Attending Unavailable Tomas Buenrostro Attending Unavailable Tomas Buenrostro Referring Unavailable Ranney, Christopher Primary Care Unavailable Ranney, Christopher Primary Care Unavailable Ranney, Christopher Referring Unavailable Yann Taylor Attending Unavailable Tomas Buenrostro Attending Unavailable Ranney, Christopher Primary Care Unavailable Armando Paul Referring Unavailable Tomas Buenrostro Referring Unavailable Tomas Buenrostro Attending Unavailable Ranney, Christopher Primary Care Unavailable Ranney, Christopher Referring Unavailable Tomas Buenrostro Attending Unavailable Ranney, Christopher Primary Care Unavailable Beverly, Christopher Referring Unavailable Tomas Buenrostro Attending Unavailable Jonhney, Christopher Primary Care Unavailable Tomas Buenrostro Attending Unavailable Ranney, Christopher Primary Care Unavailable Ranney, Christopher Referring Unavailable Armando Paul Referring Unavailable Tomas Buenrostro Attending Unavailable Armando Paul Primary Care Unavailable Allergies Allergy Classification Reported Allergen(s) Allergy Type Date of Onset Reaction(s) Facility (8 sources) Ibuprofen; Translations: [IBUPROFEN] Drug Allergy 8 Anaphylaxis [facility] (3 sources) NSAIDs; Translations: [NSAIDS (NON-STEROIDAL ANTI-INFLAMMATORY DRUG)] Propensity to adverse reactions 5 Anaphylaxis [facility] Work Phone: (1 source) Nonsteroidal Anti-inflammatory Compounds Allergy to substance 5 Swelling [facility] Comment on above: tongue and throat (1 source) Ibuprofen Drug Allergy 5 [facility] (1 source) NSAIDs Drug allergy (disorder) 5 [facility] Medications Current Medications Medication Drug Class(es) Dates Sig (Normalized) Sig (Original) azithromycin 250 mg oral tablet (1 source) Macrolide Antimicrobial Start: 06-18-2024 End: 06-23-2024 azithromycin (Zithromax Z-Chacho) 250 mg tablet Indications: Acute bronchitis, unspecified organism Take 2 tablets (500 mg) on Day 1, followed by 1 tablet (250 mg) once daily on Days 2 through 5. 6 tablet 06/18/2024 06/23/2024 Active B-Complex With Vitamin C tablet (1 source) Start: 10-23-2023 B-Complex With Vitamin C tablet Active 1 {tbl} PO DAILY October 23, 2023 12:00am Cholecalciferol (1 source) Vitamin D Start: 10-23-2023 take 1 capsule by mouth once daily Cholecalciferol (Vitamin D3) 62.5 mcg (2,500 unit) capsule Active 62.5 ug PO DAILY October 23, 2023 12:00am Multivitamin tablet (1 source) Start: 10-23-2023 Multivitamin tablet Active 1 {tbl} PO DAILY October 23, 2023 12:00am predniSONE 10 mg oral tablet (1 source) Start: 06-18-2024 End: 06-23-2024 take 3 tablets by mouth once daily predniSONE (Deltasone) 10 mg tablet Indications: Acute bronchitis, unspecified organism Take 3 tablets (30 mg) by mouth once daily for 5 days. 15 tablet 06/18/2024 06/23/2024 Active Turmeric extract (1 source) Start: 11-19-2023 take 1 capsule by mouth once daily Turmeric 400 mg capsule Active 400 mg PO DAILY November 19, 2023 12:00am Completed/Discontinued Medications Medication Drug Class(es) Dates Sig (Normalized) Sig (Original) acetaminophen 325 mg / oxyCODONE hydrochloride 5 mg oral tablet (6 sources) Opioid Agonist Start: 12-02-2023 End: 12-15-2023 Oxycodone-Acetamino phen (Endocet) 5-325 mg tablet Discontinued 1 {tbl} PO Q4H as needed for pain 14 3 0 December 02, 2023 December 15, 2023 10:04am Tear of medial meniscus of left knee Other tear of medial meniscus, current injury, left knee, initial encounter Start: 12-03-2017 End: 12-10-2017 Oxycodone-Acetaminophen 1 TA BLET tablet Discontinued 1 - 2 {tbl} PO EVERY 4 HOURS NEEDED as needed for Pain 30 5 December 03, 2017 12:00am December 10, 2017 2:27pm Umbilical hernia without obstruction or gangrene Start: 12-03-2017 End: 12-10-2017 take 1 tablet by mouth every four hours as needed Oxycodone-Acetaminophen Discontinued 1 - 2 TABLET PO EVERY 4 HOURS NEEDED 30 5 December 03, 2017 12:00am December 10, 2017 2:27pm benzonatate 200 mg oral capsule (5 sources) Non-narcotic Antitussive Start: 12-26-2020 End: 10-23-2023 take 1 capsule by mouth three times daily as needed for cough Benzonatate 200 mg capsule Discontinued 200 mg PO THREE TIMES A DAY as needed for cough 30 0 December 26, 2020 12:00am October 23, 2023 8:15am rivaroxaban 10 mg oral tablet (1 source) Factor Xa Inhibitor Start: 12-02-2023 End: 09-20-2024 take 1 tablet by mouth once daily Rivaroxaban (Xarelto) 10 mg tablet Discontinued 10 mg PO DAILY 14 14 0 December 02, 2023 12:00am September 20, 2024 1:26pm Tear of medial meniscus of left knee Other tear of medial meniscus, current injury, left knee, initial encounter vte prophylaxis Problems Active Problems Problem Classification Problem Date Documented Da te Episodic/Chronic Abdominal hernia (5 sources) Umbilical hernia; Translations: [Umbilical hernia without obstruction or gangrene] 12-03-2017 Episodic Acute bronchitis (3 sources) Acute bronchitis; Translations: [Acute bronchitis, unspecified] Onset: 06-18-2024 06-18-2024 Episodic Immunizations and screening for infectious disease (6 sources) Patient encounter status; Translations: [Encounter for screening for COVID-19] 12-26-2020 Episodic Other connective tissue disease (1 source) Myalgia, unspecified site; Translations: [Myalgia, unspecified site] Onset: 09-29-2024 Episodic Other lower respiratory disease (5 sources) Cough; Translations: [Cough] 12-26-2020 Episodic Other upper respiratory infections (3 sources) Viral upper respiratory tract infection; Translations: [Acute upper respiratory infection, unspecified] Onset: 07-14-2024 07-14-2024 Episodic Past or Other Problems Problem Classification Problem Date Documented Da te Episodic/Chronic Joint disorders and dislocations; trauma-related (2 sources) Other tear of medial meniscus, current injury, left knee, initial encounter; Translations: [Tear of medial meniscus of left knee] Onset: 12-30-2023 10-23-2023 Episodic Sprains and strains (2 sources) 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; Translations: [Sprain of posterior cruciate ligament of left knee, initial encounter] Onset: 07-06-2024 10-23-2023 Episodic Unclassified (5 sources) history of lymph node removal 10-04-2021 Comment on above: RIGHT ARM, 2006 Results Test Name Value Interpretation Reference Range Facility Absolute lymphocyte countOrd ered By: Armando Paul on 09-26-2024 Lymphocytes Auto (Unsp spec) [#/Vol] 1.80 10*3/uL 0.83-4.51 [facility] Absolute neutrophil countOrd ered By: Armando Paul on 09-26-2024 Neutrophils (Bld) [#/Vol] 3.7 10*3/uL 2.0-7.7 [facility] Anion gap in Serum or Plasma Ordered By: Armando Paul on 09-26-2024 Anion gap [Moles/Vol] 12 mmol/L 5-15 [facility] Automated lymphocyte count a s percentage of total leukocytesOrdered By: Armando Paul on 09-26-2024 Lymphocytes/100 WBC Auto (Unsp spec) 28.6 % [facility] BUN/creatinine ratioOrdered By: Armando Paul on 09-26-2024 Urea nitrogen/Creatinine [Mass ratio] 14.8 mg/mg - [facility] Basic Metabolic Profile (BMP )on 09-26-2024 BUN/CRE 14.8 RATIO Normal 01-02 [facility] Comment on above: Order Comment: Order Date: 09/19/24Order Info: [id number] - BMPOrder Info: - LIPIDOrder Info: [id number] - TSHOrder Info: [id number] - PSA Performed By: #### L 500.2500, L501.9910, L101.9900, L500.4100, L501.9520, L100.0100 ####[facility] [address] [place], [address] Calcium [Mass/Vol] 9.4 mg/dL Normal 7.6-11.0 [facility] Comment on above: Order Comment: Order Date: 09/19/24Order Info: [id number] - BMPOrder Info: [id number] - LIPIDOrder Info: [id number] - TSHOrder Info: [id number] - PSA Performed By: #### L 500.2500, L501.9910, L101.9900, L500.4100, L501.9520, L100.0100 ####[facility] [address] [place], [address] Chloride [Moles/Vol] 103 mmol/L Normal 98-108 [facility] Comment on above: Order Comment: Order Date: 09/19/24Order Info: [id number] - BMPOrder Info: [id number] - LIPIDOrder Info: 3 - TSHOrder Info: [id number]- - PSA Performed By: #### L 500.2500, L501.9910, L101.9900, L500.4100, L501.9520, L100.0100 ####[facility] [address] [place], [address] CO2 [Moles/Vol] 25.1 mmol/L Normal 21.0-32.0 [facility] Comment on above: Order Comment: Order Date: 09/19/24Order Info: 666- - BMPOrder Info: [id number] - LIPIDOrder Info: [id number] - TSHOrder Info: [id number] - PSA Performed By: #### L 500.2500, L501.9910, L101.9900, L500.4100, L501.9520, L100.0100 ####[facility] [address] [place], [address] Creatinine [Mass/Vol] 1.10 mg/dL Normal 0.70-1.20 [facility] Comment on above: Order Comment: Order Date: 09/19/24Order Info: [id number] - BMPOrder Info: [id number] - LIPIDOrder Info: 3 - TSHOrder Info: [id number] - PSA Performed By: #### L 500.2500, L501.9910, L101.9900, L500.4100, L501.9520, L100.0100 ####[facility] [address] [place], [address] GAP 12 Normal 5-15 [facility] Comment on above: Order Comment: Order Date: 09/19/24Order Info: 666- - BMPOrder Info: [id number] - LIPIDOrder Info: 63 - TSHOrder Info: [id number] - PSA Performed By: #### L 500.2500, L501.9910, L101.9900, L500.4100, L501.9520, L100.0100 ####[facility] [address] [place], [address] GFR/1.73 sq M.predicted among non-blacks MDRD (S/P/Bld) [Vol rate/Area] 80 mL/min/{1.73_m2} Normal >60 [facility] Comment on above: Order Comment: Order Date: 09/19/24Order Info: [id number] - BMPOrder Info: [id number] - LIPIDOrder Info: 3 - TSHOrder Info: [id number] - PSA Result Comment: mL/m in/1.73m2 CKD-EPI Creatinine Equation (2020) Performed By: #### L 500.2500, L501.9910, L101.9900, L500.4100, L501.9520, L100.0100 ####[facility] [address] [place], [address] Glucose [Mass/Vol] 93 mg/dL Normal 70-99 [facility] Comment on above: Order Comment: Order Date: 09/19/24Order Info: [id number] - BMPOrder Info: - LIPIDOrder Info: 3 - TSHOrder Info: [id number] - PSA Performed By: #### L 500.2500, L501.9910, L101.9900, L500.4100, L501.9520, L100.0100 ####[facility] [address] [place], [address] Potassium [Moles/Vol] 4.3 mmol/L Normal 3.3-5.1 [facility] Comment on above: Order Comment: Order Date: 09/19/24Order Info: [id number] - BMPOrder Info: - LIPIDOrder Info: 3 - TSHOrder Info: [id number]- - PSA Performed By: #### L 500.2500, L501.9910, L101.9900, L500.4100, L501.9520, L100.0100 ####[facility] [address] [place], [address] Sodium [Moles/Vol] 140 mmol/L Normal 133-145 [facility] Comment on above: Order Comment: Order Date: 09/19/24Order Info: [id number] - BMPOrder Info: - LIPIDOrder Info: [id number] - TSHOrder Info: [id number] - PSA Performed By: #### L 500.2500, L501.9910, L101.9900, L500.4100, L501.9520, L100.0100 ####[facility] [address] [place], [address] Urea nitrogen [Mass/Vol] 16 mg/dL Normal 4-19 [facility] Comment on above: Order Comment: Order Date: 09/19/24Order Info: [id number] - BMPOrder Info: [id number] - LIPIDOrder Info: [id number] - TSHOrder Info: [id number] - PSA Performed By: #### L 500.2500, L501.9910, L101.9900, L500.4100, L501.9520, L100.0100 ####[facility] [address] [place], [place], [address] Basophil percentageOrdered B y: Armando Paul on 09-26-2024 Basophils/100 WBC (Bld) 0.5 % 0-1 [facility] CBC W/Diff, Automatedon 09-13 Absolute Lymph 1.80 X10 3/uL Normal 0.83-4.51 [facility] Comment on above: Order Comment: Order Date: 09/19/24Order Info: [id number] - CBCDOrder Info: [id number] - SED Performed By: #### L 500.2500, L501.9910, L101.9900, L500.4100, L501.9520, L100.0100 ####[facility] [address] [place], [address] Absolute Neut 3.7 X10 3/uL Normal 2.0-7.7 [facility] Comment on above: Order Comment: Order Date: 09/19/24Order Info: [id number] - CBCDOrder Info: [id number] - SED Performed By: #### L 500.2500, L501.9910, L101.9900, L500.4100, L501.9520, L100.0100 ####[facility] [address] [place], [address] Basophils/100 WBC (Bld) 0.5 % Normal 0-1 [facility] Comment on above: Order Comment: Order Date: 09/19/24Order Info: [id number]- - CBCDOrder Info: [id number] - SED Performed By: #### L 500.2500, L501.9910, L101.9900, L500.4100, L501.9520, L100.0100 ####[facility] [address] [place], [address] Eosinophils/100 WBC (Bld) 3.8 % Normal 0-5 [facility] Comment on above: Order Comment: Order Date: 09/19/24Order Info: [id number] - CBCDOrder Info: [id number] - SED Performed By: #### L 500.2500, L501.9910, L101.9900, L500.4100, L501.9520, L100.0100 ####[facility] [address] [place], [address] Erythrocyte distribution width (RBC) [Ratio] 12.3 % Normal 11.6-14.6 [facility] Comment on above: Order Comment: Order Date: 09/19/24Order Info: [id number] - CBCDOrder Info: [id number] - SED Performed By: #### L 500.2500, L501.9910, L101.9900, L500.4100, L501.9520, L100.0100 ####[facility] [address] [place], [address] Hematocrit (Bld) [Volume fraction] 43.2 % Normal 40-54 [facility] Comment on above: Order Comment: Order Date: 09/19/24Order Info: [id number]- - CBCDOrder Info: [id number] - SED Performed By: #### L 500.2500, L501.9910, L101.9900, L500.4100, L501.9520, L100.0100 ####[facility] [address] [place], [address] Hemoglobin (Bld) [Mass/Vol] 15.2 g/dL Normal 13.0-16.5 [facility] Comment on above: Order Comment: Order Date: 09/19/24Order Info: [id number] - CBCDOrder Info: [id number] - SED Performed By: #### L 500.2500, L501.9910, L101.9900, L500.4100, L501.9520, L100.0100 ####[facility] [address] [place], [address] IG% 0.300 Normal 0.0-0.9 [facility] Comment on above: Order Comment: Order Date: 09/19/24Order Info: [id number] - CBCDOrder Info: [id number] - SED Result Comment: IG% - Immature Granulocytes (promyelocytes, myelocytes and metamyelocytes) > 1% indicates that a LEFT SHIFT is Present. Performed By: #### L 500.2500, L501.9910, L101.9900, L500.4100, L501.9520, L100.0100 ####[facility] [address] [place], [address] Lymphocytes/100 WBC (Bld) 28.6 % Normal 19-41 [facility] Comment on above: Order Comment: Order Date: 09/19/24Order Info: [id number] - CBCDOrder Info: [id number] - SED Performed By: #### L 500.2500, L501.9910, L101.9900, L500.4100, L501.9520, L100.0100 ####[facility] [address] [place], [address] MCH (RBC) [Entitic mass] 33.9 pg High 27.0-32.0 [facility] Comment on above: Order Comment: Order Date: 09/19/24Order Info: 018- - CBCDOrder Info: [id number] - SED Performed By: #### L 500.2500, L501.9910, L101.9900, L500.4100, L501.9520, L100.0100 ####[facility] [address] [place], [address] MCHC (RBC) [Mass/Vol] 35.2 g/dL Normal 32-36 [facility] Comment on above: Order Comment: Order Date: 09/19/24Order Info: 018- - CBCDOrder Info: [id number] - SED Performed By: #### L 500.2500, L501.9910, L101.9900, L500.4100, L501.9520, L100.0100 ####[facility] [address] [place], [address] MCV (RBC) [Entitic vol] 96.2 fL High 80-94 [facility] Comment on above: Order Comment: Order Date: 09/19/24Order Info: [id number]- - CBCDOrder Info: [id number] - SED Performed By: #### L 500.2500, L501.9910, L101.9900, L500.4100, L501.9520, L100.0100 ####[facility] [address] [place], [address] Monocytes/100 WBC (Bld) 8.4 % Normal 0-10 [facility] Comment on above: Order Comment: Order Date: 09/19/24Order Info: [id number]- - CBCDOrder Info: [id number] - SED Performed By: #### L 500.2500, L501.9910, L101.9900, L500.4100, L501.9520, L100.0100 ####[facility] [address] [place], [address] Neutrophils/100 WBC (Bld) 58.4 % Normal 47-70 [facility] Comment on above: Order Comment: Order Date: 09/19/24Order Info: [id number]- - CBCDOrder Info: [id number] - SED Performed By: #### L 500.2500, L501.9910, L101.9900, L500.4100, L501.9520, L100.0100 ####[facility] [address] [place], [address] Nucleated RBC (Bld) [#/Vol] 0 10*3/uL Normal 0-5 [facility] Comment on above: Order Comment: Order Date: 09/19/24Order Info: 018- - CBCDOrder Info: [id number] - SED Performed By: #### L 500.2500, L501.9910, L101.9900, L500.4100, L501.9520, L100.0100 ####[facility] [address] [place], [address] Platelet mean volume (Bld) [Entitic vol] 10.1 fL Normal 6.2-12.0 [facility] Comment on above: Order Comment: Order Date: 09/19/24Order Info: [id number]- - CBCDOrder Info: [id number] - SED Performed By: #### L 500.2500, L501.9910, L101.9900, L500.4100, L501.9520, L100.0100 ####[facility] [address] [place], [address] Platelets (Bld) [#/Vol] 227 10*3/uL Normal 150-450 [facility] Comment on above: Order Comment: Order Date: 09/19/24Order Info: [id number]- - CBCDOrder Info: [id number] - SED Performed By: #### L 500.2500, L501.9910, L101.9900, L500.4100, L501.9520, L100.0100 ####[facility] [address] [place], [place], [address] RBC (Bld) [#/Vol] 4.49 10*6/uL Low 4.6-6.2 [facility] Comment on above: Order Comment: Order Date: 09/19/24Order Info: [id number] - CBCDOrder Info: [id number] - SED Performed By: #### L 500.2500, L501.9910, L101.9900, L500.4100, L501.9520, L100.0100 ####[facility] [address] [place], [address] RDW SD 43.6 fl Normal 35.1-43.9 [facility] Comment on above: Order Comment: Order Date: 09/19/24Order Info: [id number] - CBCDOrder Info: [id number] - SED Performed By: #### L 500.2500, L501.9910, L101.9900, L500.4100, L501.9520, L100.0100 ####[facility] [address] [place], [address] WBC (Bld) [#/Vol] 6.3 10*3/uL Normal 4.4-11.0 [facility] Comment on above: Order Comment: Order Date: 09/19/24Order Info: [id number] - CBCDOrder Info: [id number] - SED Performed By: #### L 500.2500, L501.9910, L101.9900, L500.4100, L501.9520, L100.0100 ####[facility] [address] [place], [place], [id number] Calculated very low density lipoprotein (VLDL) cholesterol measurementOrdered By: Armando Paul on 09-26-2024 Calculated very low density lipoprotein (VLDL) cholesterol measurement 22 mg/dL 5-40 [facility] Carbon dioxide, total [Moles /volume] in Central venous bloodOrdered By: Armando Paul on 09-26-2024 CO2 [Moles/Vol] 25.1 mmol/L 21.0-32.0 [facility] Chloride assayOrdered By: Nemesio Paul on 09-26-2024 Chloride [Moles/Vol] 103 mmol/L 98-108 [facility] Eosinophil percentageOrdered By: Armando Paul on 09-26-2024 Eosinophils/100 WBC (Bld) 3.8 % 0-5 [facility] Erythrocyte Sed Rateon 09-26 SED RATE 3 mm/hr Normal 0-20 [facility] Comment on above: Order Comment: Order Date: 09/19/24Order Info: [id number] - CBCDOrder Info: [id number] - SED Performed By: #### L 500.2500, L501.9910, L101.9900, L500.4100, L501.9520, L100.0100 ####[facility] [address] [place], [place], [address] Erythrocyte distribution wid th ratioOrdered By: Armando Paul on 09-26-2024 Erythrocyte distribution width (RBC) [Ratio] 12.3 % 11.6-14.6 [facility] Erythrocyte distribution wid th standard deviationOrdered By: Armando Paul on 09-26-2024 Erythrocyte distribution width (RBC) [Ratio] 43.6 fl 35.1-43.9 [facility] Erythrocyte sedimentation ra teOrdered By: Armando Paul on 09-26-2024 ESR (Bld) [Velocity] 3 mm/h 0-20 [facility] Glomerular filtration rate ( GFR) estimation/1.73 sq m using serum, plasma, or whole bOrdered By: Armando Paul on 09-26-2024 GFR/1.73 sq M.predicted among non-blacks MDRD (S/P/Bld) [Vol rate/Area] 80 mL/min/{1.73_m2} >60 [facility] Comment on above: mL/min/1.73m2 CKD-EP I Creatinine Equation (2020) Hematocrit Auto (Bld) [Volum e fraction]Ordered By: Armando Paul on 09-26-2024 Hematocrit (Bld) [Volume fraction] 43.2 % 40-54 [facility] Hemoglobin measurementOrdere d By: Armando Paul on 09-26-2024 Hemoglobin (Bld) [Mass/Vol] 15.2 g/dL 13.0-16.5 [facility] Immature granulocytes/100 WB C Auto (Bld)Ordered By: Armando Paul on 09-26-2024 Immature granulocytes/100 WBC (Bld) 0.300 % 0.0-0.9 [facility] Comment on above: IG% - Immature Granu locytes (promyelocytes, myelocytes and metamyelocytes) > 1% indicates that a LEFT SHIFT is Present. L509.3001on 09-26-2024 Testosterone [Mass/Vol] 309.00 ng/dL Normal 300-890 [facility] Comment on above: Order Comment: Order Date: 09/19/24Order Info: [id number] - BMPOrder Info: [id number] - LIPIDOrder Info: [id number] - TSHOrder Info: 285-1 - PSA Performed By: #### L 509.3001, L503.0106, L506.1001 ####[facility] [address] [place], [place], [address] LDL calc ser/plasOrdered By: Armando Paul on 09-26-2024 Cholesterol in LDL [Mass/Vol] 144 mg/dL [facility] Comment on above: Usiwcrwqyc=017-922 m g/dL & Higher Xove=511 mg/dL or greater Laboratory - Chemistry and C hemistry - challengeOrdered By: Armando Paul on 09-26-2024 Testosterone [Mass/Vol] 309.00 ng/dL 300-890 [facility] Lipid Profileon 09-26-2024 CHOL:HDL 3.53 Normal [facility] Comment on above: Order Comment: Order Date: 09/19/24Order Info: 06-1 - BMPOrder Info: [id number] - LIPIDOrder Info: [id number] - TSHOrder Info: [id number] - PSA Performed By: #### L 500.2500, L501.9910, L101.9900, L500.4100, L501.9520, L100.0100 ####[facility] [address] [place], [address] Cholesterol [Mass/Vol] 232 mg/dL High <=200 [facility] Comment on above: Order Comment: Order Date: 09/19/24Order Info: [id number] - BMPOrder Info: [id number] - LIPIDOrder Info: [id number] - TSHOrder Info: 285- - PSA Result Comment: Chol esterol level, Desirable <200 mg/dL Borderline high cholesterol 200-239 mg/dL High cholesterol >=240 mg/dL Recommendations of the NCEP Adult Treatment Panel for the following risk-cutoff thresholds for the [place] population. Performed By: #### L 500.2500, L501.9910, L101.9900, L500.4100, L501.9520, L100.0100 ####[facility] [address] [place], [address] Cholesterol in HDL [Mass/Vol] 66 mg/dL Normal [facility] Comment on above: Order Comment: Order Date: 09/19/24Order Info: [id number] - BMPOrder Info: [id number] - LIPIDOrder Info: [id number] - TSHOrder Info: [id number] - PSA Result Comment: Kathie onal Cholesterol Education Program (NCEP) guidelines: <40 mg/dL: Low HDL-cholesterol (major risk factor for CHD) >= 60 mg/dL: High HDL-cholesterol (negative risk factor for CHD) HDL-cholesterol is affected by a number of factors, e.g. smoking, exercise, hormones, sex and age. Performed By: #### L 500.2500, L501.9910, L101.9900, L500.4100, L501.9520, L100.0100 ####[facility] [address] [place], [address] Cholesterol in LDL [Mass/Vol] 144 mg/dL Normal [facility] Comment on above: Order Comment: Order Date: 09/19/24Order Info: [id number] - BMPOrder Info: [id number] - LIPIDOrder Info: 3 - TSHOrder Info: [id number] - PSA Result Comment: Bord kageja=667-294 mg/dL Higher Dmve=202 mg/dL or greater Performed By: #### L 500.2500, L501.9910, L101.9900, L500.4100, L501.9520, L100.0100 ####[facility] [address] [place], [address] Cholesterol in VLDL [Mass/Vol] 22 mg/dL Normal 5-40 [facility] Comment on above: Order Comment: Order Date: 09/19/24Order Info: 666- - BMPOrder Info: [id number] - LIPIDOrder Info: 3 - TSHOrder Info: [id number] - PSA Performed By: #### L 500.2500, L501.9910, L101.9900, L500.4100, L501.9520, L100.0100 ####[facility] [address], [address] Triglyceride [Mass/Vol] 111 mg/dL Normal [facility] Comment on above: Order Comment: Order Date: 09/19/24Order Info: [id number] - BMPOrder Info: [id number] - LIPIDOrder Info: [id number] - TSHOrder Info: [id number] - PSA Result Comment: The drugs N-Acetylcysteine and Metamizole may falsely depress this assay. Normal range: <150 mg/dL Borderline High: 150-199 mg/dL High: 200-499 mg/dL Very High: >500 mg/dL Performed By: #### L 500.2500, L501.9910, L101.9900, L500.4100, L501.9520, L100.0100 ####[facility] [address] [place], [address] MCV (mean corpuscular volume ) determinationOrdered By: Armando Paul on 09-26-2024 MCV (RBC) [Entitic vol] 96.2 fL High 80-94 [facility] Mean corpuscular hemoglobin (MCH) determinationOrdered By: Armando Paul on 09-26-2024 MCH (RBC) [Entitic mass] 33.9 pg High 27.0-32.0 [facility] Mean corpuscular hemoglobin concentration (MCHC) determinationOrdered By: Armando Paul on 09-26-2024 MCHC (RBC) [Mass/Vol] 35.2 g/dL 32-36 [facility] Mean platelet volume determi nationOrdered By: Armando Paul on 09-26-2024 Platelet mean volume (Bld) [Entitic vol] 10.1 fL 6.2-12.0 [facility] Monocyte percentageOrdered B y: Armando Paul on 09-26-2024 Monocytes/100 WBC (Bld) 8.4 % 0-10 [facility] Neutrophil percentageOrdered By: Armando Paul on 09-26-2024 Neutrophils/100 WBC (Bld) 58.4 % 47-70 [facility] Nucleated red blood cell per centageOrdered By: Armando Paul on 09-26-2024 Nucleated RBC/100 WBC (Bld) [Ratio] 0 % 0-5 [facility] PSA,Total - Annual Screenon 09-26-2024 PSA,TOT SCREEN 0.67 ng/mL Normal 0.02-4.00 [facility] Comment on above: Order Comment: Order Date: 09/19/24Order Info: [id number] - BMPOrder Info: [id number] - LIPIDOrder Info: [id number] - TSHOrder Info: [id number] - PSA Result Comment: This test was performed using the [employer] tPSA method. Measured values of a patient??sample can vary depending on the testing procedure used. PSA values determined on patient samples by different testing procedures cannot be used interchangeably. If there is a change in PSA assays while monitoring therapy, sequential testing should be performed to confirm baseline values. Performed By: #### L 500.2500, L501.9910, L101.9900, L500.4100, L501.9520, L100.0100 ####[facility] [address] [place], [place], [address] Platelet countOrdered By: Nemesio Paul on 09-26-2024 Platelets (Bld) [#/Vol] 227 10*3/uL 150-450 [facility] Potassium measurement (mass/ volume)Ordered By: Armando Paul on 09-26-2024 Potassium (Unsp spec) [Mass/Vol] 4.3 mmol/L 3.3-5.1 [facility] RBC Auto (Bld) [#/Vol]Ordere d By: Armando Paul on 09-26-2024 RBC (Bld) [#/Vol] 4.49 10*6/uL Low 4.6-6.2 [facility] Screening total cholesterol/ high density lipoprotein (HDL) cholesterol ratioOrdered By: Armando Paul on 09-26-2024 Cholesterol.total/Choles terol in HDL [Mass ratio] 3.53 {ratio} [facility] Serum creatinine measurement (mass/volume)Ordered By: Armando Paul on 09-26-2024 Creatinine [Mass/Vol] 1.10 mg/dL 0.70-1.20 [facility] Serum glucose measurement (m ass/volume)Ordered By: Armando Paul on 09-26-2024 Glucose [Mass/Vol] 93 mg/dL 70-99 [facility] Serum or plasma calcium jessenia urement (mass/volume)Ordered By: Armando Paul on 09-26-2024 Calcium [Mass/Vol] 9.4 mg/dL 7.6-11.0 [facility] Serum or plasma cholesterol in HDL measurement (mass/volume)Ordered By: Armando Paul on 09-26-2024 Cholesterol in HDL [Mass/Vol] 66 mg/dL >40 [facility] Comment on above: National Cholesterol Education Program (NCEP) guidelines:<40 mg/dL: Low HDL-cholesterol (major risk factor for CHD)>= 60 mg/dL: High HDL-cholesterol (negative risk factor for CHD)HDL-cholesterol is affected by a number of factors, e.g. smoking, exercise, hormones, sex and age. Serum or plasma cholesterol measurement (mass/volume)Ordered By: Armando Paul on 09-26-2024 Cholesterol [Mass/Vol] 232 mg/dL High <201 [facility] Comment on above: Cholesterol level, D esirable <200 mg/dLBorderline high cholesterol 200-239 mg/dLHigh cholesterol >=240 mg/dLRecommendations of the NCEP Adult Treatment Panel for the following risk-cutoff thresholds for the [place] population. Serum or plasma urea nitroge n measurement (mass/volume)Ordered By: Armando Paul on 09-26-2024 Urea nitrogen [Mass/Vol] 16 mg/dL 4-19 [facility] Sodium levelOrdered By: Alanna Paul on 09-26-2024 Sodium [Moles/Vol] 140 mmol/L 133-145 [facility] TSH DL <= 0.005 mIU/L QnOrde red By: Armando Paul on 09-26-2024 TSH Qn 0.891 uIU/mL 0.300-4.200 [facility] Thyroid Stim Hormone (TSH)on 09-26-2024 TSH 0.891 uIU/mL Normal 0.300-4.200 [facility] Comment on above: Order Comment: Order Date: 09/19/24Order Info: [id number] - BMPOrder Info: [id number] - LIPIDOrder Info: [id number] - TSHOrder Info: [id number] - PSA Performed By: #### L 500.2500, L501.9910, L101.9900, L500.4100, L501.9520, L100.0100 ####[facility] [address] [place], [address] Triglycerides measurementOrd ered By: Armando Paul on 09-26-2024 Triglyceride [Mass/Vol] 111 mg/dL <199 [facility] Comment on above: The drugs N-Acetylcy steine and Metamizole may falsely depress this assay. Normal range: <150 mg/dLBorderline High: 150-199 mg/dLHigh: 200-499 mg/dLVery High: >500 mg/dL Vitamin B12on 09-26-2024 Cobalamin (Vitamin B12) [Mass/Vol] 675 pg/mL Normal 180-914 [facility] Comment on above: Order Comment: Order Date: 09/19/24Order Info: [id number] - BMPOrder Info: [id number] - LIPIDOrder Info: [id number] - TSHOrder Info: [id number] - PSA Performed By: #### L 509.3001, L503.0106, L506.1001 ####[facility] [address] [place], [address] Vitamin B12 ser/plasOrdered By: Armando Paul on 09-26-2024 Cobalamin (Vitamin B12) [Mass/Vol] 675 pg/mL 180-914 [facility] Vitamin D,25 Hydroxyon 09-26 Vitamin D 25-OH 48.1 ng/mL Normal 30-100 [facility] Comment on above: Order Comment: Order Date: 09/19/24Order Info: [id number] - BMPOrder Info: [id number] - LIPIDOrder Info: [id number] - TSHOrder Info: [id number] - PSA Result Comment: Lyla min D Status Deficiency: <20 ng/mL (50nmol/L) Insufficiency: 20-30 ng/mL (50-75 nmol/L) Sufficiency: 30-100 ng/mL (75-250 nmol/L) Toxicity: >100 ng/mL (>250 nmol/L) Performed By: #### L 509.3001, L503.0106, L506.1001 ####[facility] [address] [place], [place], [address] White blood cell (WBC) count Ordered By: Armando Paul on 09-26-2024 WBC (Bld) [#/Vol] 6.3 10*3/uL 4.4-11.0 [facility] Orthopedic Visit Reporton Orthopedic Visit Report [facility] [place], [place] [address] OFFICE VISIT Date of Service: 05/23/24 MR#: [id number] Acct: [id number] Name: DEE SORIA Rep #: [id number] : 1970 Provider: Dr. Tomas lyons MD Age/Sex: 54/M Location: [facility] [place] Status: Signed Intake Vital Signs 01/12/24 09:37 Height 6 ft 2 in Intake Visit Reasons: left knee Chief Complaint: pain, clicking, popping, catching Accompanied by: Self Is patient in pain?: Yes (4-6) Allergies ibuprofen Allergy (Severe, Verified 05/23/24 08:32) throat swelling NSAIDS (Non-Steroidal Anti-Inflamma Allergy (Verified 05/23/24 08:32) Swelling Medications ???Medication ???Instructions ???Recorded ???Confirmed ???Type B-complex with vitamin C 1 tab PO DAILY 10/23/23 05/23/24 H istory cholecalciferol (vitamin D3) 62.5 62.5 mcg PO DAILY 10/23/23 History mcg (2,500 unit) capsule multivitamin 1 tab PO DAILY 10/23/23 05/23/24 H istory turmeric 400 mg capsule 400 mg PO DAILY 11/19/23 05/23/24 History rivaroxaban 10 mg tablet (Xarelto) 10 mg PO DAILY vte prophylaxis 2 12/02/23 05/23/24 Rx weeks #14 tabs PFSH Medical History Wears glasses Alcohol use History of steroid therapy Arthritis Back pain Injury of head and neck History of diverticulitis Chewing tobacco dependence History of edema 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 Tomas Buenrostro MD 05/23/24 0807. Part of today???s visit was documented by [ ], acting as scribe. DEE SORIA is a 54 year old M here today for 6 months FU left knee arthroscopy medial meniscus repair. Patient back to work he walks about 4 to 6 miles a day. He has a chronic PCL tear in the knee. We did a meniscus repair but has had some improvement on the medial sided knee pain that was there before surgery but now has having some more catching in the knee. Has some swelling at the end of the day. 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 Patient did have some improvement of his symptoms I suspect the mechanical symptoms are most likely from the chronic PCL tear but the patient is interested in obtaining repeat MRI to see about the healing of the meniscus repair and any other things that could be going on with the knee I will go ahead and order that follow-up after this test. 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: Status: Chronic Orders: Orders Lower Ext Joint Only (Routine) Today S83.242A - Other tear of medial meniscus, current injury, left knee, initial encounter, S83.522A - Sprain of posterior cruciate ligament of left knee, initial encounter Ortho Exam General General: Yes no acute distress Neurologic: Yes alert and Yes oriented x3 Psychologic: Yes reasonable and appropriate Left Knee Skin/Wound: Yes CDI, Yes healed, No ecchymosis (posterior knee ), No erythema and No swelling Examination: Yes med jt line tenderness, No Lat jt line tenderness, No TTP inf pole patella, No Crepitus, No Pain with flexion and No Shraddha's Test Quad Atrophy: No Stability: 1+: Posterior Drawer and 2+: Posterior Drawer Apprehension with Lateral Translation: No KNEE: Neurovascularly intact. calf soft. 0-125. trace effusion 05/23/24 0852 Date Tomas Buenrostro MD Cosigner Signature: Date (if applicable) CC: Normal [facility] PT D/C Summary (1)on 2 024 PT D/C Summary (1) [facility] Physical Therapy [facility] [address] [place] [address] / REHABILITATION SERVICES DISCHARGE SUMMARY MR#: [id number] Acct: [id number] Name: DEE SORIA Rep #: [id number] : 1970 53 From: George Smith PT, ATC Referring Dr.: Dr. Tomas Buenrostro MD Status: R EG RCR Insurance: [facility] [id number] [facility] SELF PAY INSURANCE Discharge Summary D/C summary: It has been my pleasure to treat DEE SORIA referred by Dr. Tomas Buenrostro MD, with the diagnosis of L medial meniscal repair 12/02/23 for a total of 30 visit(s). Discharge Date: Please see the following information for a summary of their discharge status. Subjective Subjective: I am ready to be done Pain L knee: Pain Intensity (Out of 10): 1 Overall Improvement % Improvement: 60 Objective Objective/Function: L knee pain is 1-2/10 L knee MMT: flex= 29, ext= 42 #F L knee ROM: 0-4-120 degrees Pt is I with HEP Goals Goal 1:: Pt will be I with HEP. Goal Progress: Goal Met Goal 2:: Pt will be partial WBing with one crutch to aid with ambulation. Goal Progress: Goal Met Goal 3:: Pt will increase L knee strength to within 90% of R knee to aid with completing iADLs and ADLs. Goal Progress: Progressing Goal 4:: Pt will increase L knee ROM to within 90% of R knee to aid with negotiating stairs. Goal Progress: Goal Met Goal 5:: Pt will decrease pain by 50% to aid with sleep. Goal Progress: Goal Met Goal 6:: Pt will negotiate 10 stairs without limitation to aid with return to work Goal Progress: New goal Plan Plan: Discharge to I gym routine D/C Information d/c sentence: If there are questions or concerns regarding this patient's physical therapy, please feel free to call me at [phone]. Thank you for the referral of this patient. Sincerely, George Smith, PT, ATC Balance/Gait/Functio nal tests Balance/Special Test Scores Lower Extremity Functional Score: 39 Improvement % Improvement: 60 03/14/24 0922 CC: Dr. Armando Paul MD; Dr. Tomas Buenrostro MD [facility] Signed Normal [facility] Orthopedic Visit Reporton Orthopedic Visit Report [facility] [address] [place] [address] [address] [place] [address] OFFICE VISIT Date of Service: 02/23/24 MR#: [id number] Acct: [id number] Name: DEE SORIA Rep #: [id number] : 1970 Provider: Dr. Tomas lyons MD Age/Sex: 53/M Location: [facility] [place] Status: Signed Intake Vital Signs 12/02/23 06:20 01/12/24 09:37 Height 6 ft 2 in 6 ft 2 in Intake Visit Reasons: LEFT KNEE Chief Complaint: left knee post op Accompanied by: Self Is patient in pain?: Yes Pain scale (1-10): 3 Allergies ibuprofen Allergy (Severe, Verified 02/23/24 09:18) throat swelling NSAIDS (Non-Steroidal Anti-Inflamma Allergy (Verified 02/23/24 09:18) Swelling Medications ???Medication ???Instructions ???Recorded ???Confirmed ???Type B-complex with vitamin C 1 tab PO DAILY 10/23/23 02/23/24 History cholecalciferol (vitamin D3) 62.5 62.5 mcg PO DAILY 10/23/23 02/23/24 History mcg (2,500 unit) capsule multivitamin 1 tab PO DAILY 10/23/23 02/23/24 History turmeric 400 mg capsule 400 mg PO DAILY 11/19/23 02/23/24 History rivaroxaban 10 mg tablet (Xarelto) 10 mg PO DAILY vte prophylaxis 2 12/02/23 02/23/24 Rx weeks #14 tabs PFSH Medical History Wears glasses Alcohol use History of steroid therapy Arthritis Back pain Injury of head and neck History of diverticulitis Chewing tobacco dependence History of edema 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 Tomas Buenrostro MD 02/23/24 0916. Part of today???s visit was documented by [ ], acting as scribe. DEE SORIA is a 53 year old M here today for 3 months FU left knee arthroscopy medial meniscus repair. Patient doing physical therapy. Having some minor amounts of swelling that comes and goes. Doing some stationary biking. 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 Ortho Exam General General: Yes no acute distress Neurologic: Yes alert and Yes oriented x3 Psychologic: Yes reasonable and appropriate Left Knee Skin/Wound: Yes CDI, Yes healed, No ecchymosis (posterior knee ), No erythema and No swelling Examination: Yes med jt line tenderness, No Lat jt line tenderness, No TTP inf pole patella, No Crepitus, No Pain with flexion and No Shraddha's Test Quad Atrophy: No Stability: 1+: Posterior Drawer and 2+: Posterior Drawer Apprehension with Lateral Translation: No KNEE: Neurovascularly intact. calf soft. 0-125. 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 Patient doing well should continue to monitor the swelling use rest ice activity modifications and anti-inflammatories as needed and back off if it is swelling. The patient is desiring to return back to work on full duties I think that is reasonable but should keep in mind the trace effusion from today try not to do anything overly heavy or demanding on the leg for another 3 months and follow-up at that point. The patient understands no further questions or concerns. (2) Tear of medial meniscus of left knee: Status: Acute 02/23/24 0936 Date [facility]: Date (if applicable) CC: Normal [facility] Re-Evaluation - PT (1)on Re-Evaluation - PT (1) [facility] [address] [place] [address] [address] [place] [address] / REEVALUATION / MEDICARE RECERTIFICATION PHYSICAL THERAPY MR#: [id number] Acct: [id number] Name: DEE SORIA Rep #: [id number] : 1970 53 From: George Smith PT, ATC Referring Dr.: Dr. Tomas Buenrostro MD Status:REG R Insurance: [facility] [id number] [place] [employer]ELF PAY INSURANCE Re-Evaluation Intro: Dr. Tomas Buenrostro MD, It has been my pleasure to treat DEE SORIA over the last 13 visits for L medial meniscal repair 12/02/23. Please see the progress note below for an update on the physical therapy plan of care! Subjective Subjective: I am still having a lot of trouble sleeping at this time. I go from the bed to the chair Objective Objective/Function: L knee pain ranges from 4-6/10 L knee ROM: 0-10-105 degrees L knee MMT: flex= 18, ext= 19 #F Pt is still lacking functional strength and ROM Plan Plan Plan: 01/21/24- Continue to focus on L knee strengthening and ROM Balance/Gait/Functio nal tests Balance/Special Test Scores Lower Extremity Functional Score: 20 Goals Goals Goal 1:: Pt will be I with HEP. Goal Time Frame: 4-6 Weeks Goal Progress: Progressing Goal 2:: Pt will be partial WBing with one crutch to aid with ambulation. Goal Time Frame: 4-6 Weeks Goal Progress: Goal Met Goal 3:: Pt will increase L knee strength to within 90% of R knee to aid with completing iADLs and ADLs. Goal Time Frame: 4-6 Weeks Goal Progress: Progressing Goal 4:: Pt will increase L knee ROM to within 90% of R knee to aid with negotiating stairs. Goal Time Frame: 4-6 Weeks Goal Progress: Progressing Goal 5:: Pt will decrease pain by 50% to aid with sleep. Goal Time Frame: 4-6 Weeks Goal Progress: Progressing Anticipated Interventions Anticipated Interventions Patient/Client Instruction: Educate patient on: Plan of Care Therapeutic Exercise to Include: Strength training, Balance training, Body mechanics, Flexibilty training and Dynamic Lumbar Stabilization For the Purpose of:: To decrease pain, To decrease swelling/inflammatio n, To increase ROM, To improve muscle performance and motor function, To improve ability to perform ADL's and To improve ability of physical actions for home/community/work/ leisure Re-Evaluation Ending Re-evaluation ending: Please do not hesitate to contact me at [phone] by phone or if you have questions or concerns regarding this new plan of care! Sincerely, George Smith, PT, ATC 01/21/24 1033 CC: Dr. Armando Paul MD; Dr. Tomas Buenrostro MD [facility] Signed For Medicare only, by signing this I certify the plan of care. Physicians Signature Date Normal [facility] Orthopedic Visit Reporton Orthopedic Visit Report [facility] [place] [address] OFFICE VISIT Date of Service: 01/12/24 MR#: [id number] Acct: [id number] Name: DEE SORIA Rep #: [id number] : 1970 Provider: Dr. Tomas lyons MD Age/Sex: 53/M Location: [facility] [place] Status: Signed Intake Vital Signs 12/02/23 06:20 Height 6 ft 2 in Intake Visit Reasons: LEFT KNEE Chief Complaint: left knee post op Allergies ibuprofen Allergy (Severe, Verified 01/12/24 09:22) throat swelling NSAIDS (Non-Steroidal Anti-Inflamma Allergy (Verified 01/12/24 09:22) Swelling Medications ???Medication ???Instructions ???Recorded ???Confirmed ???Type B-complex with vitamin C 1 tab PO DAILY 10/23/23 01/12/24 History cholecalciferol (vitamin D3) 62.5 62.5 mcg PO DAILY 10/23/23 01/12/24 History mcg (2,500 unit) capsule multivitamin 1 tab PO DAILY 10/23/23 01/12/24 History turmeric 400 mg capsule 400 mg PO DAILY 11/19/23 01/12/24 History rivaroxaban 10 mg tablet (Xarelto) 10 mg PO DAILY vte prophylaxis 2 12/02/23 01/12/24 Rx weeks #14 tabs PFSH Medical History Wears glasses Alcohol use History of steroid therapy Arthritis Back pain Injury of head and neck History of diverticulitis Chewing tobacco dependence History of edema 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 Tomas Buenrostro MD 01/12/24 0920. Part of today???s visit was documented by [ ], acting as scribe. DEE SORIA is a 53 year old M here today for 6 weeks FU left knee arthroscopy medial meniscus repair. 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 Patient doing well recommend gradually discontinue the brace and crutches over the next few weeks follow-up in 6 weeks time. Okay to start strengthening progressive range of motion the patient understands no further questions or concerns. 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 calf soft. 0-95. 01/12/24 0941 Date [facility]: Date (if applicable) CC: Normal [facility] Orthopedic Visit Reporton Orthopedic Visit Report [facility] [address] [place] [address] [address] [place] [address] OFFICE VISIT Date of Service: 12/15/23 MR#: [id number] Acct: [id number] Name: DEE SORIA Rep #: [id number] : 1970 Provider: Dr. Tomas lyons MD Age/Sex: 53/M Location: [facility] [place] Status: Signed Intake Vital Signs 12/02/23 06:20 Height 6 ft 2 in Intake Visit Reasons: left knee Chief Complaint: left knee post op Accompanied by: Is patient in pain?: Yes Pain scale (1-10): 2 Allergies ibuprofen Allergy (Severe, Verified 12/15/23 10:04) throat swelling NSAIDS (Non-Steroidal Anti-Inflamma Allergy (Verified 12/15/23 10:04) Swelling Medications ???Medication ???Instructions ???Recorded ???Confirmed ???Type B-complex with vitamin C 1 tab PO DAILY 10/23/23 12/15/23 History cholecalciferol (vitamin D3) 62.5 62.5 mcg PO DAILY 10/23/23 12/15/23 History mcg (2,500 unit) capsule multivitamin 1 tab PO DAILY 10/23/23 12/15/23 History turmeric 400 mg capsule 400 mg PO DAILY 11/19/23 12/15/23 History rivaroxaban 10 mg tablet (Xarelto) 10 mg PO DAILY vte prophylaxis 2 12/02/23 12/15/23 Rx weeks #14 tabs PFSH Medical History Wears glasses Alcohol use History of steroid therapy Arthritis Back pain Injury of head and neck History of diverticulitis Chewing tobacco dependence History of edema 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 Tomas Buenrostro MD 12/15/23 1002. Part of today???s visit was documented by [ ], acting as scribe. DEE SORIA is a 53 year old M here today for 2 weeks FU left knee arthroscopy medial meniscus repair. Patient doing reasonably well. Still has some swelling and bruising about the knee. Using the brace. Doing some gentle weightbearing and full extension. Has had 2 physical therapy visits. Ortho Exam General General: Yes no acute distress Neurologic: Yes alert and Yes oriented x3 Psychologic: Yes reasonable and appropriate Left Knee Skin/Wound: Yes CDI, Yes healed, Yes ecchymosis (posterior knee ), No erythema and Yes swelling 1+: Effusion Apprehension with Lateral Translation: No KNEE: Neurovascularly intact. calf soft. 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 visualized proximal tibia and fibula. Normal proximal tibiofibular articulation. There is no demonstrated fracture. Normal medial femorotibial compartment. Normal lateral femorotibial compartment. Normal patellofemoral articulation. There is a moderate volume joint effusion. The soft tissue structures are unremarkable. RAD/Knee 4 or More Views IMPRESSION: Moderate joint effusion. No demonstrated fracture. Electronically Signed: Bishop Godwin MD at 8:24 EDT Reading Locati (more content not included)... Normal [facility] Absolute lymphocyte countOrd ered By: Tr Ranney on 10-30-2022 Lymphocytes Auto (Unsp spec) [#/Vol] 1.97 10*3/uL 0.83-4.51 [facility] Basophil percentageOrdered B y: Tr Beverly on 10-30-2022 Basophils/100 WBC (Bld) 1.0 % 0-1 [facility] Chloride [Moles/Vol] 107 mmol/L 98-107 [facility] Cholesterol [Mass/Vol] 258 mg/dL <200 [facility] Comment on above: <200 mg/dL Desirable 200-240 mg/dL Borderline >240 mg/dL High Risk Eosinophils/100 WBC (Bld) 5.8 % 0-5 [facility] Glucose [Mass/Vol] 87 mg/dL 74-106 [facility] Neutrophils (Bld) [#/Vol] 2.1 10*3/uL 2.0-7.7 [facility] Neutrophils/100 WBC (Bld) 42.7 % 47-70 [facility] Potassium [Moles/Vol] 3.8 mmol/L 3.5-5.1 [facility] Sodium [Moles/Vol] 140 mmol/L 136-145 [facility] Testosterone [Mass/Vol] 271.23 ng/dL [facility] Comment on above: CENTRAL 90% REFERENC E RANGES MALE AGE <50 197.44 - 669.58 ng/dL MALE AGE > or = 50 187.72 - 684.19 ng/dL FEMALE AGE <50 8.38 - 35.01 ng/dL FEMALE AGE > or = 50 <7.00 - 35.92 ng/dL Effective as of 10/09/20 Triglyceride [Mass/Vol] 263 mg/dL <199 [facility] Comment on above: The drugs N-Acetylcy steine and Metamizole may falsely depress this assay.Serum Triglycerides Reference Interval Normal <150 mg/dL Borderline high 150 - 199 mg/dL High 200 - 499 mg/dL Very High > or = 500 mg/dL WBC (Bld) [#/Vol] 5.0 10*3/uL 4.4-11.0 [facility] Blood erythrocytes count (nu mber/volume)Ordered By: Tr Paul on 10-30-2022 RBC (Bld) [#/Vol] 4.71 10*6/uL 4.6-6.2 [facility] Blood hemoglobin measurement (mass/volume)Ordered By: Tr Paul on 10-30-2022 Hemoglobin (Bld) [Mass/Vol] 15.8 g/dL 13.0-16.5 [facility] Blood lymphocytes/100 leukoc ytesOrdered By: Tr Paul on 10-30-2022 Lymphocytes/100 WBC (Bld) 39.3 % 19-41 [facility] Blood monocytes/100 leukocyt esOrdered By: Tr Paul on 10-30-2022 Monocytes/100 WBC (Bld) 11.0 % 0-10 [facility] Blood platelet mean volumeOr dered By: Tr Paul on 10-30-2022 Platelet mean volume (Bld) [Entitic vol] 9.5 fL 6.2-12.0 [facility] Determination of erythrocyte mean corpuscular volume (MCV)Ordered By: Tr Paul on 10-30-2022 MCV (RBC) [Entitic vol] 95.1 fL 80-94 [facility] Erythrocyte sedimentation ra teOrdered By: Tr Paul on 10-30-2022 ESR (Bld) [Velocity] 3 mm/h 0-20 [facility] Hematocrit Auto (Bld) [Volum e fraction]Ordered By: Tr Paul on 10-30-2022 Hematocrit (Bld) [Volume fraction] 44.8 % 40-54 [facility] Laboratory - Chemistry and C hemistry - challengeOrdered By: Tr Paul on 10-30-2022 CO2 [Moles/Vol] 27.0 mmol/L 21.0-32.0 [facility] Cobalamin (Vitamin B12) [Mass/Vol] 539 pg/mL 211-911 [facility] Urea nitrogen/Creatinine [Mass ratio] 13.4 mg/mg 10-20 [facility] - Hematology and Cell countsOrdered By: Tr Paul on 10-30-2022 Erythrocyte distribution width (RBC) [Entitic vol] 43.1 fL 35.1-43.9 [facility] Erythrocyte distribution width (RBC) [Ratio] 12.3 % 11.6-14.6 [facility] Immature granulocytes/100 WBC (Bld) 0.200 % 0.0-0.9 [facility] Comment on above: IG% - Immature Granu locytes (promyelocytes, myelocytes and metamyelocytes) > 1% indicates that a LEFT SHIFT is Present. MCH (RBC) [Entitic mass] 33.5 pg 27.0-32.0 [facility] Nucleated RBC/100 WBC (Bld) [Ratio] 0 % 0-5 [facility] MCHC Auto (RBC) [Mass/Vol]Or dered By: Tr Paul on 10-30-2022 MCHC (RBC) [Mass/Vol] 35.3 g/dL 32-36 [facility] No Panel InformationOrdered By: Tr Paul on 10-30-2022 Estimated GFR (MDRD) Amer 89 mL/min >60 [facility] Comment on above: GFR Calc Estimated GFR (MDRD) Non-Af Amer 73 mL/min >60 [facility] Comment on above: Non- GFR Calc Prostate Specific Antigen Screen 0.51 ng/mL 0.00-4.00 [facility] Comment on above: This test was perfor med using the TPSA assay method for theOne CodexDrybar chemistry system. Values obtained with differentassay methods cannot be used interchangably.When changing PSA assays in the course of monitoring apatient, additional sequential testing should be carriedout to confirm baseline values. Thyroid Stimulating Hormone (TSH) 2.57 uIU/mL 0.358-3.74 [facility] Vitamin D 25-Hydroxy 29.0 ng/mL [facility] Comment on above: Vitamin D 25(OH) Sta tus Range Deficiency <20 ng/mL (50nmol/L) Insufficiency 20 - 30 ng/mL (50 - 75 nmol/L) Sufficiency 30 - 100 ng/mL (75 - 250 nmol/L) Toxicity >100 ng/mL (>250 nmol/L) Platelets bldOrdered By: Campos Paul on 10-30-2022 Platelets (Bld) [#/Vol] 227 10*3/uL 150-450 [facility] Serum or plasma calcium jessenia urement (mass/volume)Ordered By: Tr Paul on 10-30-2022 Calcium [Mass/Vol] 9.1 mg/dL 8.5-10.1 [facility] Serum or plasma cholesterol in HDL measurement (mass/volume)Ordered By: Tr Paul on 10-30-2022 Cholesterol in HDL [Mass/Vol] 50 mg/dL >40 [facility] Comment on above: The drugs N-Acetylcy steine and Metamizole may falsely depress this assay. Reference Range HDL <40 mg/dL Low HDL Cholesterol HDL >or= 60 mg/dL High HDL Cholesterol Serum or plasma cholesterol in VLDL measurement (mass/volume)Ordered By: Tr Paul on 10-30-2022 Cholesterol in VLDL [Mass/Vol] 53 mg/dL 5-40 [facility] Serum or plasma creatinine m easurement (mass/volume)Ordered By: Tr Paul on 10-30-2022 Creatinine [Mass/Vol] 1.12 mg/dL 0.70-1.30 [facility] Comment on above: The validity of the calculated GFR & GFRAA in patients over 70 years has not been determined. Clinical correlation is essential. Serum or plasma low density lipoprotein (LDL) cholesterol measurement (mass/volume)Ordered By: Tr Paul on 10-30-2022 Cholesterol in LDL [Mass/Vol] 155 mg/dL 0-130 [facility] Serum or plasma urea nitroge n measurement (mass/volume)Ordered By: Tr Paul on 10-30-2022 Urea nitrogen [Mass/Vol] 15 mg/dL 7-18 [facility] Thin prep Papanicolaou smear with manual screeningOrdered By: Tr Paul on 10-30-2022 Thin prep Papanicolaou smear with manual screening 6 5-15 [facility] Thin prep Papanicolaou smear with manual screening Negative Negative [facility] Comment on above: Lyme antibodies not detected. Reflex testing is notindicated.No laboratory evidence of infection with B. burgdorferi(Lyme disease). Negative results may occur in patientsrecently infected (less than or equal to 14 days) with B.burgdorferi. If recent infection is suspected, repeattesting on a new sample collected in 7 to 14 days isrecommended.Performed at: [facility] [id number] Director: Elbert Coulter PhD, Phone: [phone] Vital Signs Date Time Vital Sign Value Performing Clinician Facility 07-14-2024 09:18-0400 Body height 188 cm Lázaro Terrell APRN-KAILEE Work Phone: [facility] 07-14-2024 09:18-0400 Body mass index (BMI) [Ratio] 27.6 kg/m2 Lázaro Terrell APRN-WARP TYING MACHINE TENDER Work Phone: [facility] 07-14-2024 09:18-0400 Body temperature 97.3 [degF] Lázaro Terrell MANAGER CAREER-WARP TYING MACHINE TENDER Work Phone: [facility] 07-14-2024 09:18-0400 Body weight 97.52 kg Lázaro Terrell APRN-WARP TYING MACHINE TENDER Work Phone: [facility] 07-14-2024 09:18-0400 Diastolic blood pressure 88 mm[Hg] Lázaro Terrell APRN-WARP TYING MACHINE TENDER Work Phone: [facility] 07-14-2024 09:18-0400 Heart rate 62 /min Lázaro Xander MANAGER CAREER-WARP TYING MACHINE TENDER Work Phone: [facility] 07-14-2024 09:18-0400 Respiratory rate 14 /min Lázaro Terrell MANAGER CAREER-WARP TYING MACHINE TENDER Work Phone: [facility] 07-14-2024 09:18-0400 SaO2% (BldA) [Mass fraction] 98 % Lázaro Terrell MANAGER CAREER-WARP TYING MACHINE TENDER Work Phone: [facility] 07-14-2024 09:18-0400 Systolic blood pressure 136 mm[Hg] Lázaro Terrell MANAGER CAREER-WARP TYING MACHINE TENDER Work Phone: [facility] 06-18-2024 08:32-0400 Body height 190 cm Hermila Candelariobrent MANAGER CAREER-WARP TYING MACHINE TENDER Work Phone: [facility] 06-18-2024 08:32-0400 Body mass index (BMI) [Ratio] 27.01 kg/m2 Hermila Tony MANAGER CAREER-WARP TYING MACHINE TENDER Work Phone: [facility] 06-18-2024 08:32-0400 Body temperature 98.1 [degF] Hermila Palominoenihallie MANAGER CAREER-WARP TYING MACHINE TENDER Work Phone: [facility] 06-18-2024 08:32-0400 Body weight 97.52 kg Hermila Tony MANAGER CAREER-WARP TYING MACHINE TENDER Work Phone: [facility] 06-18-2024 08:32-0400 Diastolic blood pressure 94 mm[Hg] Hermila Tony MANAGER CAREER-WARP TYING MACHINE TENDER Work Phone: [facility] 06-18-2024 08:32-0400 Heart rate 94 /min Hermila Tony MANAGER CAREER-WARP TYING MACHINE TENDER Work Phone: [facility] 06-18-2024 08:32-0400 SaO2% (BldA) [Mass fraction] 96 % Hermila Tony MANAGER CAREER-WARP TYING MACHINE TENDER Work Phone: [facility] 06-18-2024 08:32-0400 Systolic blood pressure 143 mm[Hg] Hermila Tony MANAGER CAREER-WARP TYING MACHINE TENDER Work Phone: [facility] Encounters Encounter Date Encounter Type Care Provider Facility Start: 10-14-2024 [facility] Start: 09-26-2024 End: 09-26-[address] Armando Paul MD Work Phone: -[facility] Start: 09-26-2024 End: 09-26-[address] Armando Paul MD -[facility] Start: 09-26-2024 End: 09-26-2024 ambulatory Armando Paul Facility:[facility] Start: 07-14-2024 End: 07-14-2024 Patient encounter procedure Lázaro Terrell MANAGER CAREER-WARP TYING MACHINE TENDER Work Phone: [facility] Comment on above: Viral URI with cough (Primary Dx) Start: 07-14-2024 End: 07-14-2024 ambulatory [facility] Start: 07-11-2024 ambulatory Tomas Mollison Facility :[facility] Start: 06-18-2024 End: 06-18-2024 Patient encounter procedure Hermila Tony MANAGER CAREER-WARP TYING MACHINE TENDER Work Phone: [facility] Comment on above: Acute bronchitis, un specified organism (Primary Dx) Start: 06-18-2024 End: 06-18-2024 ambulatory [facility] Start: 05-23-2024 End: 05-23-2024 ambulatory Tomas Mollison Facility:[facility] Start: 03-14-2024 End: 03-14-2024 ambulatory Tomas Mollison Facility:[facility] Start: 02-23-2024 End: 02-23-2024 ambulatory Tomas Mollison Facility:[facility] Start: 01-12-2024 End: 01-12-2024 ambulatory Tomas Mollison Facility:[facility] Start: 12-15-2023 End: 12-15-2023 ambulatory Tomas Mollison Facility:[facility] Start: 12-04-2023 End: 12-04-2023 ambulatory [facility] Facility:[facility] Start: 12-02-2023 ambulatory Tomas Buenrostro Facility :[facility] Start: 12-02-2023 End: 12-02-2023 ambulatory [facility] Facility:[facility] Start: 11-24-2023 End: 11-24-2023 ambulatory Armando Paul Facility:[facility] Start: 10-23-2023 End: 10-23-2023 [facility] Start: 07-20-2023 End: 07-20-2023 ambulatory [facility] Work Phone: Start: 07-20-2023 End: 07-20-2023 Patient encounter procedure [facility] - [facility] Work Phone: Start: 06-30-2023 End: 06-30-2023 ambulatory [facility] Work Phone: Start: 06-30-2023 End: 06-30-2023 Patient encounter procedure [facility], [place] Work Phone: Start: 10-30-2022 End: 10-30-2022 ambulatory [facility] Work Phone: Start: 10-30-2022 End: 10-30-2022 Patient encounter procedure [facility] [place] Work Phone: Start: 10-15-2021 End: 10-15-2021 Patient encounter procedure [facility] [place] Procedures Date Procedure Procedure Detail Performing Clinician Start: 09-26-2024 Prostate specific an tigen measurement Dr. Armando Paul MD Work Phone: Comment on above: This test was perfor med using the [employer] tPSA method. Measured values of a patient sample can vary depending on the testing procedure used. PSA values determined on patient samples by different testing procedures cannot be used interchangeably. If there is a change in PSA assays while monitoring therapy, sequential testing should be performed to confirm baseline values. Start: 09-26-2024 Vitamin D, 25-hydrox y measurement Dr. Armando Paul MD Work Phone: Comment on above: Vitamin D StatusDefi ciency: <20 ng/mL (50nmol/L)Insufficiency: 20-30 ng/mL (50-75 nmol/L)Sufficiency: 30-100 ng/mL (75-250 nmol/L)Toxicity: >100 ng/mL (>250 nmol/L) Start: 07-20-2023 MRI of lumbar spine Start: 06-30-2023 Plain x-ray of pelvi s and lower extremity Start: 06-30-2023 Radiologic examinati on of knee Start: 10-30-2022 Complete x-ray serie s of lumbar spine with bending views Start: 10-15-2021 Plain x-ray of hand Start: 10-15-2021 Plain x-ray of wrist Plan of Treatment Date Care Activity Detail Author Start: 03-16-2027 DTaP/Tdap/Td Vaccines (2 - Td or Tdap) DTaP/Tdap/Td Vaccines (2 - Td or Tdap) [facility] Start: 11-14-2024 Influenza vaccination Influenza Vaccine (Season Ended) [facility] Start: 11-15-2023 COVID-19 Vaccine ( season) COVID-19 Vaccine ( season) [facility] Start: 2021 Pneumococcal vaccination Pneumococcal Vaccine (1 of 1 - PCV) [facility] Start: 2021 Zoster Vaccines (1 of 2) Zoster Vaccines (1 of 2) [facility] Start: 1990 Hepatitis B Vaccines (1 of 3 - 19+ 3-dose series) Hepatitis B Vaccines (1 of 3 - 19+ 3-dose series) [facility] Start: 1989 Diabetes mellitus screening Diabetes Screening [facility] Start: 1989 Hepatitis C screening Hepatitis C Screening [facility] Start: 1972 MMR Vaccines (1 of 1 - Standard series) MMR Vaccines (1 of 1 - Standard series) [facility] Start: 1971 HIV screening HIV Screening [facility] Start: 1971 Lipid panel Lipid Panel [facility] Start: 1971 Screening for malignant neoplasm of colon [facility] Start: 1971 Yearly Adult Physical Yearly Adult Physical [facility] Payers Date Payer Category Payer Self-pay [id number] 2023 Managed Care (Private) [id number] 2023 Private Health Insurance [id number] 1970 Unknown [id number] 1970 Unknown [id number] Unknown [id number] Unknown [facility] EDA [id number] Unknown [facility] [employer] [id number] Unknown [id number] Unknown [id number] Unknown [id number] Unknown [id number] Unknown [id number] Unknown [id number] [id number] Unknown [id number] [id number] Unknown [id number] [id number] Unknown [id number] [id number] Unknown [id number] [id number] Unknown [id number] [id number] Unknown [id number] [id number] Unknown [id number] Social History Date Type Detail Facility [facility]: [facility] Start: 11-26-2017 [facility] Start: 1970 Sex Assigned At Male [facility] Start: 06-18-2024 [facility] tobacco [facility] Work Phone: Start: 06-18-2024 Tobacco use and exposure Smokeless tobacco non-user [facility] Work Phone: Start: 1970 Sex assigned at Not on file [facility] Work Phone: Start: 07-14-2024 Gender identity Not on file [facility] Work Phone: Start: 06-08-2024 End: 07-14-2024 Exposure to SARS-CoV-2 (event) Not sure [facility] Start: 07-14-2024 History of Social function [facility] Work Phone: Start: 09-20-2024 [facility] (finding[facility] Medical Equipment Procedure Code Equipment Code Equipment Origin al Text Equipment Identifier Dates Arthroscopy, knee Soft-tissue/me sh anchor, non-bioabsorbable [id number] FDA Start: 12-02-2023 MESH,VENTLEX ST SM 4.3CM FDA Start: 12-03-2017 MESH,VENTLEX ST SM 4.3CM FDA Start: 12-03-2017 MESH,VENTLEX ST SM 4.3CM FDA Start: 12-03-2017 MESH,VENTLEX ST SM 4.3CM FDA Start: 12-03-2017 MESH,VENTLEX ST SM 4.3CM FDA Start: 12-03-2017 History of Present illness Narrative 07-14-2024 Lázaro TerrellLONNIE-KAILEE - 07/14/2024 9:15 AM EDT Note Date & Type Note Facility 07-14-2024 History of Present illness Narrative [facility] Lázaro TerrellKEVIN Visit Note - 07/14/2024 9:58 AM This note was generated with voice recognition software and may contain errors including spelling, grammar, syntax, and misrecognization of what was dictated. Patient: Dee Soria, , 54 y.o., male PCP: Armando Paul MD --- ALLERGIES: Allergies[1] CURRENT MEDICATIONS: No current outpatient medications --- PAST MEDICAL HX: No known health issues. SURGICAL HX: Reports has had 3 knee surgeries, lymphnode excised from R arm, and neck fusion. FAMILY HX: No pertinent history. SOCIAL HX: reports that he has never smoked. He has never used smokeless tobacco. Enjoys backpacking. Works in [employer] department. --- CHIEF COMPLAINT: Chief Complaint Patient presents with Cough Sore Throat Headache x 4 days HISTORY OF PRESENT ILLNESS: The history was obtained from patientDaniel Price is a 54 y.o. male, who presents with a chief complaint of a dry cough, sore throat, headaches, and pressure in ears - sxs started on Thursday. 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 Reports he had similar respiratory sxs ~1 month ago - was treated with Zithromax and Prednisone, with complete relief of his symptoms until Thursday. 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 Denies any lightheadedness or dizziness; no changes in mental status. No new swelling in legs. Appetite is normal; is able to eat and drink fluids without difficulty; denies loss of sense of taste or smell. Reports symptoms have gotten worse since onset. Has not tried any [id number] medications or home remedies for symptom management. No known ill contacts. Has not received the COVID vaccine. Has not received this season's influenza vaccine.. No known history of COVID infection. Is not a smoker. No known history of asthma/COPD/respiratory issues. REVIEW OF SYSTEMS: 10 systems reviewed negative with exception of history of present illness as listed above. TODAY'S VITALS: BP 136/88 (BP Location: Right arm, Patient Position: Sitting) Pulse 62 Temp 36.3 C (97.3 F) (Temporal) Resp 14 Ht 1.88 m (6' 2) Wt 97.5 kg (215 lb) SpO2 98% BMI 27.60 kg/m PHYSICAL EXAMINATION: General: Mildly ill-appearing, well nourished male; alert and oriented; in no acute distress. Sitting comfortably on exam chair. Non-dyspneic. Eyes: Pupils equal, round and reactive to light. No conjunctival erythema; no scleral icterus. HENT: No frontal or maxillary sinus tenderness; has mild, audible nasal congestion. Airway patent, TMs and ear canals clear/unremarkable bilaterally. Nasal mucosa mildly injected and edematous. Oral mucosa moist. Posterior pharynx mildly injected but without lesions or oropharyngeal exudate aside from PND. Uvula is midline. Managing oral secretions without difficulty. Neck: Supple. Mildly tender, mobile anterior cervical lymphadenopathy bilat. Trachea is midline. Respiratory: Respirations easy and unlabored, Breath sounds equal. Lungs are clear to auscultation; no wheezes, rhonchi, or rales; has good air movement throughout. + non-productive cough noted. Non-dyspneic with ambulation; able to maintain SpO2. Cardiovascular: Normal rate, Regular rhythm. Normal S1S2. No m/r/g. 1+ pitting edema noted to delfina DOVER's - patient reports is baseline. Gastrointestinal: Soft, non-tender, non-distended; no palpable masses or organomegaly. Bowel sounds normoactive. Musculoskeletal: Grossly normal; appropriate for age. Integumentary: [place], warm, dry, and intact. No rashes or skin discoloration appreciated. Good skin turgor. Neurologic: Alert and oriented, no gross deficits. Cognition and Speech: Oriented, Speech clear and coherent. Psychiatric: Cooperative, Appropriate mood & affect. --- Medical Decision Making LABORATORY or RADIOLOGICAL IMAGING ORDERS/RESULTS: None IMPRESSION/PLAN: Course: Worsening; stable 1. Viral URI with cough (Primary) No red flags on exam today. Symptoms consistent with viral URI with associated symptoms, but reviewed other potential etiologies. Patient declines testing for COVID/influenza/RSV. No antibiotics indicated at this point, but encouraged to continue conservative measures, and reviewed normal, expected course of viral illness. Instructed to push fluids, rest, and to use appropriate over the counter medications as needed for management of symptoms. Reviewed instructions for self-isolation and continued monitoring. Reviewed red flags to monitor for, counseled on potential adverse reactions of treatments, expectations for improvement in sxs, and advised to follow-up with primary care provider in 3-5 days if symptoms persist, or to seek care sooner if worsening or if any additional concerns/red flags develop. Patient agreed with plan of care; questions were encouraged and answered. KEVIN Mart Advanced Practice Provider [facility] [1] Allergies Allergen Reactions Ibuprofen Anaphylaxis Nsaids (Non-Steroidal Anti-Inflammatory Drug) Anaphylaxis documented in this encounter [facility] Work Phone: History of Present illness Narrative 06-18-2024 KEVIN Marte - 06/18/2024 8:30 AM EDT Note Date & Type Note Facility 06-18-2024 History of Present illness Narrative 54 y.o. male presents for evaluation of URI. Symptoms including cough, congestion, body aches, malaise, and headache have been present for 10 days and refractory to OTC meds. No fever, chills, sore throat, rashes, ear pain, nausea, vomiting, abdominal pain, CP, or SOB. No exacerbating factors. No known COVID 19/flu exposure. Vitals: 06/18/24 0832 BP: (!) 143/94 Pulse: 94 Temp: 36.7 C (98.1 F) SpO2: 96% Allergies Allergen Reactions Ibuprofen Anaphylaxis Nsaids (Non-Steroidal Anti-Inflammatory Drug) Anaphylaxis Medication Documentation Review Audit Reviewed by KEVIN Marte (Nurse Practitioner) on 06/18/24 at 0838 Medication Order Taking? Sig Documenting Provider Last Dose Status No Medications to Display History reviewed. No pertinent past medical history. Past Surgical History: Procedure Laterality Date KNEE ARTHROSCOPY W/ ACL RECONSTRUCTION ROS See HPI Physical Exam Vitals and nursing note reviewed. Constitutional: Appearance: He is ill-appearing (Mildly). HENT: Head: Normocephalic and atraumatic. Right Ear: Tympanic membrane, ear canal and external ear normal. Left Ear: Tympanic membrane, ear canal and external ear normal. Nose: Congestion present. Mouth/Throat: Mouth: Mucous membranes are moist. Pharynx: Posterior oropharyngeal erythema present. Comments: No tonsillar edema Eyes: Extraocular Movements: Extraocular movements intact. Conjunctiva/sclera: Conjunctivae normal. Pupils: Pupils are equal, round, and reactive to light. Cardiovascular: Rate and Rhythm: Normal rate and regular rhythm. Pulmonary: Effort: Pulmonary effort is normal. Breath sounds: Normal breath sounds. Lymphadenopathy: Cervical: Cervical adenopathy present. Skin: General: Skin is warm. Neurological: General: No focal deficit present. Mental Status: He is alert and oriented to person, place, and time. Psychiatric: Mood and Affect: Mood normal. Behavior: Behavior normal. Assessment/Plan/MDM Dee was seen today for cough. Diagnoses and all orders for this visit: Acute bronchitis, unspecified organism (Primary) - azithromycin (Zithromax Z-Chacho) 250 mg tablet; Take 2 tablets (500 mg) on Day 1, followed by 1 tablet (250 mg) once daily on Days 2 through 5. - predniSONE (Deltasone) 10 mg tablet; Take 3 tablets (30 mg) by mouth once daily for 5 days. Encouraged pt to use otc cold remedies PRN, push PO fluids and rest. Patient's clinical presentation is otherwise unremarkable at this time. Patient is discharged with instructions to follow-up with primary care or seek emergency medical attention for worsening symptoms or any new concerns. I did personally review Dee's past medical history, surgical history, social history, as well as family history (when relevant). In this case, I also oversaw the his drug management by reviewing his medication list, allergy list, as well as the medications that I prescribed during the UC course and/or recommended as an out-patient (including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
[2024-10-14] MEDS: Lactated Ringers 1,000 ML 15 ML IV (07:54)
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
--- NOTE | 2024-10-14 08:30 | COLBX_PTH ---
PATIENT: KATIA EASON LOC: [facility] U#:[id number] AGE/SX: 54/M ROOM: RE10/14/[address]: Dr. Yann Taylor MD : 1970 BED: DIS: 10/14/2024 SPEC #: [id number] RECD: 10/14/24 10:19 STATUS: MARIS HAL #: [id number] BAIRON: 10/14/24 08:[address]: Yann Taylor DEPT: SURGICAL PATHOLOGY RECD BY: Isael Shepherd ENTERED: 10/14/24 10:52 SP TYPE: COLON BX OTHR DR: Dr. Omer Paul MD Tissues: A - Rectum, NOS Procedures: Surgery Specimen Level IV Surgery Specimen Level HEADER OPERATION: Colonoscopy, polypectomy PRE-OP DIAGNOSIS: Encounter for screening for malignant neoplasm of colon TISSUE SUBMITTED: A- Rectal polyp MICROSCOPIC DIAGNOSIS A. Rectum, polyp, biopsy: - Tubular adenoma. MICROSCOPIC DESCRIPTION Slides are reviewed. GROSS DESCRIPTION A. Received in fixative is one container labeled with the patient's name and designated Rectal polyp. The specimen consists of one irregular fragment of light weiner soft tissue that measures 0.4 cm. The specimen is totally submitted in one cassette. DC 10/14/2024 CPT:69714
--- NOTE | 2024-10-14 08:57 | OP.PROVAT_ITS ---
10/14/2024 Tr Paul [address] [place] [address] Re : Colonoscopy procedure for Dee Soria Dear Dr. Paul This procedure was performed on Monday, October 14, 2024. My impressions and recommendations are as follows: Impressions : - One small polyp in the rectum, removed with a hot snare. Resected and retrieved. - The examination was otherwise normal on direct and retroflexion views. Recommendations : - Discharge patient to home. - Resume previous diet. - Continue present medications. - Await pathology results. - Repeat colonoscopy in 5 years for surveillance. My findings are described in the full procedure note, which is enclosed. If I can be of further assistance, please feel free to contact me at Doctor phone number(s): , Work: . Sincerely, Yann Taylor MD 10/14/2024 8:56:41 AM This report has been signed electronically.
--- NOTE | 2024-10-14 08:57 | OP.COLON_ITS ---
Patient Name: Dee Soria Procedure Date: 10/14/2024 8:08 AM Date of : 1970 Age: 54 Procedure: Colonoscopy Indications: Screening in patient at increased risk: Family history of 1st-degree relative with colorectal cancer Providers: Yann Taylor MD Referring MD: Tr Paul Medicines: Propofol per Anesthesia Patient Profile: This is a 54 year old male. Refer to note in patient chart for documentation of history and physical. Last Colonoscopy: none. The patient's first colonoscopy is today. Complications: No immediate complications. Estimated blood loss: Minimal. Procedure: Pre-Anesthesia Assessment: - Prior to the procedure, a History and Physical was performed, and patient medications and allergies were reviewed. The patient's tolerance of previous anesthesia was also reviewed. The risks and benefits of the procedure and the sedation options and risks were discussed with the patient. All questions were answered, and informed consent was obtained. Prior Anticoagulants: The patient has taken no anticoagulant or antiplatelet agents. After reviewing the risks and benefits, the patient was deemed in satisfactory condition to undergo the procedure. After I obtained informed consent, the scope was passed under direct vision. Throughout the procedure, the patient's blood pressure, pulse, and oxygen saturations were monitored continuously. The colonoscope was introduced through the anus and advanced to the cecum, identified by appendiceal orifice and ileocecal valve. The colonoscopy was performed without difficulty. The patient tolerated the procedure well. The quality of the bowel preparation was good. The ileocecal valve, appendiceal orifice, and rectum were photographed. Scope In: 8:39:42 AM Scope Withdrawal Time 0 hours 7 minutes 39 seconds Scope Out: 8:51:59 AM Total Procedure Duration Time 0 hours 12 minutes 17 seconds Findings: A small polyp was found in the rectum. The polyp was removed with a hot snare. Resection and retrieval were complete. The exam was otherwise without abnormality on direct and retroflexion views. Impression: - One small polyp in the rectum, removed with a hot snare. Resected and retrieved. - The examination was otherwise normal on direct and retroflexion views. Recommendation: - Discharge patient to home. - Resume previous diet. - Continue present medications. - Await pathology results. - Repeat colonoscopy in 5 years for surveillance. Procedure Code(s): --- Professional --- 32160, Colonoscopy, flexible; with removal of tumor(s), polyp(s), or other lesion(s) by snare technique Diagnosis Code(s): --- Professional --- Z80.0, Family history of malignant neoplasm of digestive organs D12.8, Benign neoplasm of rectum CPT copyright 2021 [employer]. All rights reserved. The codes documented in this report are preliminary and upon fur storage clerk review may be revised to meet current compliance requirements. Yann Taylor MD 10/14/2024 8:56:41 AM This report has been signed electronically. Number of Addenda: 0 Note Initiated On: 10/14/2024 8:08 AM
--- NOTE | 2024-10-14 09:01 | PCM.POST.ANE ---
Anesthesia: Postop Eval I Current Vital Signs Temperature: 97.7 F Pulse Rate: 63 Blood Pressure: 110/65 Respiratory Rate: 18 Pulse Ox: 94 Assessment Airway patent: Yes Spontaneous unlabored respirations: Yes nausea: No Vomiting: No Anesthesia Complication: No Fluid Hydration Crystalloid volume administer (ml): 200 Total IV fluid infused: 200 Progress Note Anesthesia document: Postop Eval 1 completed: Yes
--- NOTE | 2024-10-14 10:49 | POSTOPAN2_ITS ---
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 Spontaneous unlabored Yes 10/14/24 09:01 SANITATION WORKER CLEANING MACHINERY.CSIR respirations Mental status nausea No 10/14/24 09:01 SANITATION WORKER CLEANING MACHINERY.CSIR Vomiting No 10/14/24 09:01 SANITATION WORKER CLEANING MACHINERY.CSIR Anesthesia Postop Eval I: Fluid Summary Crystalloid volume administer 200 10/14/24 09:01 SANITATION WORKER CLEANING MACHINERY.CSIR (ml) Colloids volume administered ( ml) Blood Product volume administered (ml) Total IV fluid infused 200 10/14/24 09:01 SANITATION WORKER CLEANING MACHINERY.CSIR Anesthesia Postop Eval I: Summary Notes Anesthesia Complication No 10/14/24 09:01 SANITATION WORKER CLEANING MACHINERY.CSIR Anesthesia Complication Comment: Post-operative progress note Anesthesia: Postop Eval II Evaluation Mental status: Awake Pain Level: 0 nausea: No Vomiting: No
--- NOTE | 2024-10-14 10:49 | PCM.POSTANE2 ---
Anesthesia Postop Eval I Sum Postop Eval Completion status Anesthesia document: Postop Eval 1 completed: Yes Anesthesia Postop Eval I Summary Anesthesia Postop Eval I Summary: Anesthesia Postop Eval I: Assessment Summary Airway patent Yes 10/14/24 09:01 DATA CODER OPERATOR.CSIR Spontaneous unlabored Yes 10/14/24 09:01 DATA CODER OPERATOR.CSIR respirations Mental status nausea No 10/14/24 09:01 DATA CODER OPERATOR.CSIR Vomiting No 10/14/24 09:01 DATA CODER OPERATOR.CSIR Anesthesia Postop Eval I: Fluid Summary Crystalloid volume administer 200 10/14/24 09:01 DATA CODER OPERATOR.CSIR (ml) Colloids volume administered ( ml) Blood Product volume administered (ml) Total IV fluid infused 200 10/14/24 09:01 DATA CODER OPERATOR.CSIR Anesthesia Postop Eval I: Summary Notes Anesthesia Complication No 10/14/24 09:01 DATA CODER OPERATOR.CSIR Anesthesia Complication Comment: Post-operative progress note Anesthesia: Postop Eval II Evaluation Mental status: Awake Pain Level: 0 nausea: No Vomiting: No
== END 2024-10-14 09:57 | disposition home or self-care (01) ==
LOC: EN 07:10 → AC 07:13
PROVIDERS: PCP Family Medicine; Referring Provider Family Medicine; Visit Provider Surgery
PROC: 0DJD8ZZ Inspection of Lower Intestinal Tract, Via Natural or Artificial Opening Endoscopic (ICD-10-PCS; CPT 45378; principal; 2024-10-14 08:25)
DX: Z12.11 Encounter for screening for malignant neoplasm of colon (principal); D12.8 Benign neoplasm of rectum; Z80.0 Family history of malignant neoplasm of digestive organs; Z87.19 Personal history of other diseases of the digestive system; F17.220 Nicotine dependence, chewing tobacco, uncomplicated
CPT/HCPCS: 45385; 88305; 88309; J2405

== ENCOUNTER → 2024-12-13 | Outpatient (CLI) | payer OTHER, SELFPAY ==
--- OUTSIDE RECORDS SUMMARY | 2024-10-30 11:15 | XMS RPT_ITS ---
Author Name Auto Generated Organization [facility] Care Team Providers Care Environmental Solutions Engineer Name Role Phone HERMAN CEDILLO Attending Unavailable ARMANDO FRANKEL Primary Care Unavail able ARMANDO FRANKEL Primary Care Unavail able HERMILA TONY Attending Unavailable ARMANDO FRANKEL Primary Care Unavail able LÁZARO AREVALO Attending Unavailable PROBLEMS DATE TYPE CONDITION / CODE ATTENDING STATUS [facility] 10/30/2024 Admitting diagnosis Other specified soft tissue disorders / M79.89(ICD-10) HERMAN CEDILLO Active [facility] 07/14/2024 Admitting Diagnosis Acute upper respiratory infection, unspecified / J06.9(ICD-10) LÁZARO AREVALO [facility] 06/18/2024 Admitting Diagnosis Acute bronchitis, unspecified / J20.9(ICD-10) HERMILA TONY Active [facility] PROCEDURES No Procedure Records Found RESULTS ED PROV NOTE Observed: 10/30/2024 1:10 PM Status: COMPLETED Source: [facility] EMERGENCY DEPARTMENT ATTENDING NOTE: NAME: Dee Soria CSN: [id number] 54 y.o. PCP: Armando Frankel MD History: Chief Complaint: Hand Pain HPI: The history was obtained from the patient. Dee is a 54 y.o. male who presents with a chief complaint of Hand Pain. Patient states that he has had right hand swelling for approximately 2 weeks. 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 He denies any injuries to the hand. He rates his pain 7/10 dull constant aching worse with movement. ED Course / Medical Decision Making: ED COURSE: 54-year-old male presents with right hand swelling. Differentials include overuse/arthritis, gout. X-ray demonstrates no acute findings per my interpretation still pending radiology report. He is given a splint, short course of steroids and pain medication, follow-up with orthopedics. After reviewing the items above, I did look at previous medical documentation, such as recent hospitalizations, office visits, and/or recent consultations with PCP/specialist. SDOH: Another factor that I considered in Dee's care was his Social Determinants of Health (SDOH). During this ED encounter, he did NOT appear to have any significant issues identified. Laboratory & Radiological Imaging (if done): Labs Reviewed - No data to display XR Hand Right 3+ Views (Standard) (Results Pending) Clinical Impression: 1. Swelling of right hand ROS: Review of Systems Musculoskeletal: Positive for arthralgias and joint swelling. Positives and pertinent negatives as per HPI. All other systems were reviewed and are negative. Physical Exam: Patient Vitals for the past 24 hrs: BP Temp Temp src Pulse Resp SpO2 Height Weight 10/30/24 1140 (!) 149/98 98 degrees F (36.7 degrees C) Temporal 60 18 95 % 6' 2 97.5 kg (215 lb) Physical Exam Vitals and nursing note reviewed. Constitutional: General: He is not in acute distress. Appearance: Normal appearance. He is not ill-appearing. HENT: Head: Normocephalic and atraumatic. Nose: Nose normal. No rhinorrhea. Mouth/Throat: Mouth: Mucous membranes are moist. Pharynx: Oropharynx is clear. Eyes: Extraocular Movements: Extraocular movements intact. Conjunctiva/sclera: Conjunctivae normal. Cardiovascular: Rate and Rhythm: Normal rate and regular rhythm. Heart sounds: Normal heart sounds. Musculoskeletal: Right hand: Swelling present. Decreased range of motion. Comments: Negative Tinel's sign Pulmonary: Effort: Pulmonary effort is normal. Breath sounds: Normal breath sounds. Abdominal: Palpations: Abdomen is soft. Tenderness: There is no abdominal tenderness. Skin: General: Skin is warm and dry. Capillary Refill: Capillary refill takes less than 2 seconds. Neurological: Mental Status: He is alert. Psychiatric: Mood and Affect: Mood normal. Behavior: Behavior normal. Procedures I did personally review Dee's past medical history, surgical history, social history, as well as family history (when relevant). In this case, I also oversaw the his drug management by reviewing his medication list, allergy list, as well as the medications that I prescribed during the ED course and/or recommended as an out-patient (including possible OTC medications such as acetaminophen, NSAIDs , etc). His past medical problem list included: Active Ambulatory Problems Diagnosis Date Noted No Active Ambulatory Problems Resolved Ambulatory Problems Diagnosis Date Noted No Resolved Ambulatory Problems No Additional Past Medical History ED MEDICATIONS GIVEN: Medications predniSONE (DELTASONE) tablet 60 mg (has no administration in time range) Disposition: ED Disposition ED Disposition Discharge Condition Stable Comment Dee Soria discharged to home/self care in stable condition. New Prescriptions predniSONE (DELTASONE) 10 MG tablet Starting on 10/31/2024. Take 5 (five) tablets (50 mg total) by mouth daily for 1 day, THEN 4 (four) tablets (40 mg total) daily for 1 day, THEN 2 (two) tablets (20 mg total) daily for 1 day, THEN 3 (three) tablets (30 mg total) daily for 1 day. Start: 10/31/24. oxyCODONE-acetaminophen (PERCOCET) 5-325 mg per tablet Take 0.5 (one-half) tablet to 1 (one) tablet by mouth every 6 (six) hours as needed for pain . PMHx: History reviewed. No pertinent past medical history. PMSx: Past Surgical History: Procedure Laterality Date ORTHOPEDIC SURGERY FAM. Hx: History reviewed. No pertinent family history. SOC. Hx: Social History [1] MEDs: No current outpatient medications on file prior to encounter. ALL: Allergies[2] Herman Cedillo MD ED Attending Physician [facility] EMERGENCY DEPARTMENT [1] Social History Socioeconomic History Marital status: Single Tobacco Use Smoking status: Never Smokeless tobacco: Current Types: Chew Vaping Use Vaping status: Never Used Substance and Sexual Activity Alcohol use: Not Currently Drug use: Never [2] Allergies Allergen Reactions Nsaids (Non-Steroidal Anti-Inflammatory Drug) Angioedema Herman Cedillo MD 10/30/24 1311 AUTHENTICATED BY HERMAN CEDILLO ON 10/30/2024 13:11:59 XR HAND RIGHT 3+ VIEWS (STANDARD) Observed: 10/30/2024 12:34 PM Status: F Source: [facility] Order Comment: Injury/Trauma or Illness?:Illness/Other How long have you had these symptoms (acute/chronic)?:Acute Reason for exam?:no trauma; swollen History of cancer?:n Surgeries, chemotherapy, or radiation?:n Type of Exam?:Initial Additional signs and symptoms?:difficulty moving fingers-pain EXAMINATION: XR HAND RIGHT 3+ VIEWS (STANDARD)10/30/2024 COMPARISON: None. HISTORY: ORDERING SYSTEM PROVIDED HISTORY: no trauma; swollen. Additional signs and symptoms: difficulty moving fingers-pain ORDERING SYSTEM PROVIDED DIAGNOSIS CODES: M79.89 Swelling of right hand TECHNIQUE: Frontal, oblique, and lateral views were obtained of the right hand. FINDINGS: No fracture or dislocation is identified. Joint spaces are relatively well preserved. No erosions, chondrocalcinosis, or suspicious osseous lesion is identified. IMPRESSION: No fracture or joint abnormality is identified in the right hand. PIO/baron Workstation ID: [id number] Dictated by: BRIDGER GOODRICH on [place] Oct 30, 2024 1:30:54 PM EDT Transcribed by: CLEMENTINE DUNBAR on [place] Oct 30, 2024 1:32:36 PM EDT Finalized by: BRIDGER GOODRICH on [place] Oct 30, 2024 1:45:18 PM EDT ALLERGIES DATE TYPE / CODE NAME / CODE REACTION SEVERITY SOURCE 10/30/2024 Drug Class/55299565 3(SNOMED CT) NSAIDS (NON-STEROIDAL ANTI-INFLAMMATORY DRUG) Angioedema [facility] 06/18/2024 DRUG INGREDI/432112 003(SNOMED CT) IBUPROFEN Anaphylaxis [facility] 06/18/2024 Drug Class/71917510 3(SNOMED CT) NSAIDS (NON-STEROIDAL ANTI-INFLAMMATORY DRUG) Anaphylaxis [facility] ENCOUNTERS ADMIT/DISCHARGE ACCOUNT NUMBER ADMITTING ENCOUNTER CLASS LOCATION SOURCE 10/30/2024/ 5 [id number] Emergency Building:[facility] Room: [id number]: 02 [facility] 07/14/2024/ 5 [id number] Ambulatory Building:[facility] 06/18/2024/ [id number] Ambulatory Building:[facility] PAYERS ENCOUNTER GUARANTOR PAYER SUBSCRIBER SOURCE 10/30/2024 DEE SALASB: [place] [address]Rrd: (HP) [facility] Number: [id number] Date:[id number] [address]QA: DEE SALASB: [id number] [place] [address] [facility] 10/30/2024 Secondary Insurance:[facility] Number: [id number] Date:[id number] [address]IG: DEE SALASB: [id number] [place] [address] [facility] 07/14/2024 DEE SALASB: [place] [address]Qzi: (HP) [facility] Number: [id number] Date:2023-03-16 DEE SALASB: [id number] [place] [address]Knc: (HP) [facility] 06/18/2024 DEE SALASB: [place], [place] [address]Aoy: (HP) Primary Insurance:[facility] ACOPolicy Number: [id number] Date:2023-03-16 DEE SALASB: [id number] [place], [place] [address]Wew: () [facility]
--- OUTSIDE RECORDS SUMMARY | 2024-10-30 11:15 | XMS RPT_ITS ---
Author Name Auto Generated Organization OHIP Care Team Providers Care Film Booker Name Role Phone HERMAN CEDILLO Attending Unavailable ARMANDO FRANKEL Primary Care Unavail able ARMANDO FRANKEL Primary Care Unavail able HERMILA TONY Attending Unavailable ARMANDO FRANKEL Primary Care Unavail able LÁZARO AREVALO Attending Unavailable PROBLEMS DATE TYPE CONDITION / CODE ATTENDING STATUS [facility] 10/30/2024 Admitting diagnosis Other specified soft tissue disorders / M79.89(ICD-10) HERMAN CEDILLO Active [facility] 07/14/2024 Admitting Diagnosis Acute upper respiratory infection, unspecified / J06.9(ICD-10) LÁZARO AREVALO [facility] 06/18/2024 Admitting Diagnosis Acute bronchitis, unspecified / J20.9(ICD-10) HERMILA TONY Active [facility] PROCEDURES No Procedure Records Found RESULTS ED PROV NOTE Observed: 10/30/2024 1:10 PM Status: COMPLETED Source: [facility] EMERGENCY DEPARTMENT ATTENDING NOTE: NAME: Dee Soria CSN: [id number] 54 y.o. PCP: Armando Frankel MD History: Chief Complaint: Hand Pain HPI: The history was obtained from the patient. Dee is a 54 y.o. male who presents with a chief complaint of Hand Pain. Patient states that he has had right hand swelling for approximately 2 weeks. 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 He denies any [...] Allergies[2] Herman Cedillo MD ED Attending Physician [facility] EMERGENCY DEPARTMENT [1] Social History [...] Observed: 10/30/2024 12:34 PM Status: F Source: [facility] Order Comment: Injury/Trauma or Illness?:Illness/Other How long [...] ID: [id number] Dictated by: BRIDGER GOODRICH on [place] Oct 30, 2024 1:30:54 PM EDT Transcribed by: CLEMENTINE DUNBAR on [place] Oct 30, 2024 1:32:36 PM EDT Finalized by: BRIDGER GOODRICH on [place] Oct 30, 2024 1:45:18 PM EDT ALLERGIES DATE TYPE / CODE NAME / CODE REACTION SEVERITY SOURCE 10/30/2024 Drug Class/58327285 3(SNOMED CT) NSAIDS (NON-STEROIDAL ANTI-INFLAMMATORY DRUG) Angioedema [facility] 06/18/2024 DRUG INGREDI/316190 003(SNOMED CT) IBUPROFEN Anaphylaxis [facility] 06/18/2024 Drug Class/63962555 3(SNOMED CT) NSAIDS (NON-STEROIDAL ANTI-INFLAMMATORY DRUG) Anaphylaxis [facility] ENCOUNTERS ADMIT/DISCHARGE ACCOUNT NUMBER ADMITTING ENCOUNTER CLASS LOCATION SOURCE 10/30/2024/ 5 [id number] Emergency Building:[facility] Room: PCS68Dmm: 02 [facility] 07/14/2024/ 5 [id number] Ambulatory Building:[facility] 06/18/2024/ [id number] Ambulatory Building:[facility] PAYERS ENCOUNTER GUARANTOR PAYER SUBSCRIBER SOURCE 10/30/2024 DEE SALASB: [place] [address]Ygd: (HP) [facility]: [id number] Date:[id number] [address]PI: DEE SALASB: [id number] [place] [address] [facility] 10/30/2024 Secondary Insurance[facility] Number: [id number] Date:[id number] [address]QM: DEE SALASB: [id number] [place] [address] [facility] 07/14/2024 DEE SALASB: [place], [place] [address]Gro: (HP) Primary Insurance:[facility] Number: [id number] Date:2023-03-16 DEE SALASB: [id number] [place] [address]Qpv: (HP) [facility] 06/18/2024 DEE SALASB: [place] [address]Rrk: (HP) Primary Insurance:[facility] [employer] Number: [id number] Date:2023-03-16 DEE SALASB: [id number] [place], [place] [address]Ryq: () [facility]
[2024-12-13 16:17] LABS: Hematocrit 45.0 % (40-54); Hemoglobin 15.4 g/dL (13.0-16.5); Immature Granulocytes Count 0.020 X10^3/uL (0.0-0.0); Mean Corp Hgb Conc 34.2 g/dL (32-36); Mean Corpuscular Volume 98.3 fL (80-94); Mean Platelet Vol. 10.1 fl (6.2-12.0); NRBC Flagged by Analyzer 0 % (0-5); Platelet Count 276 K/mm3 (150-450); RBC Distribution Width CV 12.2 % (11.6-14.6); RBC Distribution Width SD 44.5 fl (35.1-43.9); Red Blood Count 4.58 M/mm3 (4.6-6.2); White Blood Count 6.5 K/mm3 (4.4-11.0)
[2024-12-13 17:02] LABS: Anion Gap 13 (5-15); BUN 13 mg/dL (4-19); BUN/Creat Ratio 13.1 RATIO (10-20); CRP 32.40 mg/L (0.0-3.0); Calcium,Total 9.8 mg/dL (7.6-11.0); Carbon Dioxide 26.4 mmol/L (21.0-32.0); Chloride 101 mmol/L (98-108); Glucose 131 mg/dL (70-99); Potassium 4.2 mmol/L (3.3-5.1); Uric Acid 6.7 mg/dL (3.5-7.2)
== END | disposition home or self-care (01) ==
LOC: MFPLAB 11:50
PROVIDERS: PCP Family Medicine; Referring Provider Family Medicine; Visit Provider Family Medicine
DX: M25.539 Pain in unspecified wrist (principal)
CPT/HCPCS: 36415; 80048; 84550; 85025; 85652; 86140

== ENCOUNTER → 2025-02-01 | Outpatient (CLI) | payer OTHER, SELFPAY ==
--- NOTE | 2025-02-01 08:54 | VDUE_ITS ---
Reason For Study Reason For Study: OTHER SOFT TISSUE DISORDER Right Proximal Right jugular vein is spontaneous, widely patent, phasic, with no intraluminal echogenicity noted. Right subclavian vein is spontaneous, widely patent, phasic, with no intraluminal echogenicity noted. Right Lower Arm Right radial vein is compressible. Right ulnar vein is compressible. Right Arm Right axillary vein is spontaneous, patent, phasic, competent, compressible and demonstrates augmentation. Right brachial vein is compressible. Right cephalic vein is compressible. Right basilic vein is compressible. VL/Venous Duplex US, Unilateral Interpretation Summary Deep veins of the right upper extremity are patent and compressible segmentally . There is no evidence of deep vein thrombosis. The superficial veins of the right upper extremity, the basilic and cephalic veins, are patent and compressible. There is no evidence of right upper extremity superficial thrombo phlebitis involving the veins imaged. Ordering Physician: Omer Paul Referring Physician: Omer Paul Performed By: Mercedes Concepcion, TASHIA, RVT ???
== END | disposition home or self-care (01) ==
LOC: CVS 08:49
PROVIDERS: PCP Family Medicine; Referring Provider Family Medicine; Visit Provider Family Medicine
DX: M79.89 Other specified soft tissue disorders (principal)
CPT/HCPCS: 93971